=== PATIENT | male | born 1935 | race Caucasian/White ===

== ENCOUNTER 2017-09-28 16:48 | Inpatient (IN) | payer OTHER, MEDICARE ==
[2017-09-28] VITALS (7 sets, daily range): BP systolic 116–122; BP diastolic 57–67; PULSE 60–75; RESP 17; TEMP 97.6–98.2; O2SAT 95–98
[~2017-09-28] VITALS: Ht 188 cm; Wt 57.0 kg
[~2017-09-28 16:48] MED LIST: ATEN1TAB74 PO
[2017-09-28] MEDS ORDERED: DIVA250T3 PO (16:59)
[2017-09-28] MEDS ORDERED: ROPI2TAB PO (16:59)
[2017-09-28] MEDS ORDERED: FAMO40SU4 PO (16:59)
[2017-09-28] MEDS ORDERED: TEMA7.5C PO (16:59)
[2017-09-28] MEDS ORDERED: ENOX80P SQ (16:59)
[2017-09-28] MEDS ORDERED: AMLO5TAB2 PO (16:59)
[2017-09-28] MEDS ORDERED: SIMV40TA PO (16:59)
[2017-09-28] MEDS ORDERED: VITA10002 PO (16:59)
[2017-09-28] MEDS ORDERED: ASPI-516 CHEW (16:59)
[2017-09-28] MEDS ORDERED: TEMAZEPAM 7.5 MG CAP PO PRN (19:45)
[2017-09-28] MEDS: DIVALPROEX SODIUM E.R. 250 MG TAB PO SCH (19:45)
[2017-09-28] MEDS: amLODIPine BESYLATE 5 MG TAB PO SCH (19:45)
[2017-09-28] MEDS: ENOXAPARIN SODIUM 80 MG/0.8 ML SYRINGE SQ SCH (20:00)
[2017-09-28] MEDS: ASPIRIN 81 MG CHEW TAB PO SCH (20:48)
[2017-09-28] MEDS: PRAVASTATIN SOD 80 MG TAB PO SCH (20:48)
[2017-09-28] MEDS: CYANOCOBALAMIN 1,000 MCG TAB PO SCH (20:49)
[2017-09-28] MEDS: FAMOTIDINE 20 MG TAB PO SCH (20:50)
[2017-09-29] VITALS (25 sets, daily range): BP systolic 117–175; BP diastolic 59–83; PULSE 60–80; RESP 17–20; TEMP 97.3–98.1; O2SAT 96–100
[2017-09-29] MEDS: ASPIRIN 81 MG CHEW TAB PO SCH (08:36)
[2017-09-29] MEDS: FAMOTIDINE 20 MG TAB PO SCH ×2 (08:36→20:24)
[2017-09-29] MEDS: amLODIPine BESYLATE 5 MG TAB PO SCH (08:36)
[2017-09-29] MEDS: DIVALPROEX SODIUM E.R. 250 MG TAB PO SCH (08:36)
[2017-09-29] MEDS: CYANOCOBALAMIN 1,000 MCG TAB PO SCH (08:36)
[2017-09-29] MEDS ORDERED: DEXTROSE 50% IN WATER 50 ML VIAL(D50) IV PUSH PRN (09:45)
[2017-09-29] MEDS ORDERED: ceFAZolin 2 GM PREMIX 50 ML IV SCH (09:45)
[2017-09-29] MEDS ORDERED: INSULIN REGULAR (IV INFUSION) 100 UNITS in SODIUM CHLORIDE 0.9% INJ 99 ML IV PRN (09:45)
[2017-09-29] MEDS: SODIUM CHLORIDE 0.9% FLUSH 10 ML FLUSH IV FLUSH SCH ×2 (09:45→20:25)
[2017-09-29] MEDS ORDERED: METOPROLOL TARTRATE 25 MG TAB PO SCH (09:45)
[2017-09-29] MEDS ORDERED: CHLORHEXIDINE GLUCONATE 4% SOLN 120 ML BTL TOPICAL SCH (09:45)
[2017-09-29] MEDS ORDERED: SODIUM CHLORIDE 0.9% FLUSH 10 ML FLUSH IV FLUSH PRN (09:45)
[2017-09-29] MEDS ORDERED: CEFAZOLIN INJ 500 MG in SODIUM CHLORIDE 0.9% IRR BTL 500 ML IRRIGATION SCH (09:45)
--- NOTE | 2017-09-29 10:39 | MH ---
cc: DERIK MCCARTHY MD, SOHIT K. MD DATE OF ADMISSION: 09/28/2017 REASON FOR ADMISSION Transfer from [facility] for coronary artery disease. 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 Padron is a very pleasant 82-year-old gentleman with known history of coronary artery disease status post PCI with angioplasty in 1991 with no stenting at that time, as well as known history abdominal aortic aneurysm status post stent grafting who now presented to the emergency room with complaints of substernal chest pain, shortness of breath following some yard work. The patient was evaluated at [facility] and underwent further workup including EKG, cardiac enzymes which were indicative of a non ST elevated myocardial infarction. He subsequently underwent coronary angiogram yesterday by Dr. Wayne Mccarthy which revealed a nondominant right coronary artery with distal 80% left main stenosis per report and preserved ventricular function. He was subsequently transferred to [facility] for further management. Upon arrival here he is pain free, hemodynamically stable with no evidence of ongoing ischemia. PAST MEDICAL HISTORY: Significant for: 1. Coronary disease status post PTCA without angioplasty 1991. 2. Abdominal aortic aneurysm. 3. Hypertension. 4. Restless leg syndrome. 5. Gastroesophageal reflux disease. PAST SURGICAL HISTORY: Remarkable for: 1. Hernia repair. 2. Cholecystectomy. 3. Cardiac catheterization with PTCA described above. 4. Abdominal aortic aneurysm repair with stent graft. 5. Hemiarthroplasty of the humeral head. 6. Colonoscopy. ALLERGIES: NO KNOWN DRUG ALLERGIES. There is a remote history of lactose intolerance, however, the patient does not follow a lactose diet and eats a regular diet. SOCIAL HISTORY: Social history is remarkable for smoking in the remote past which he has not done so for awhile now and denies any excessive alcohol use or illicit drug use. FAMILY HISTORY Noncontributory. REVIEW OF SYSTEMS: As above. All other parameters are negative. PHYSICAL EXAMINATION: On examination today he weighs 56 kg, blood pressure is 153/71 with a heart rate of 66 which is regular, respiratory rate is 18 and he is afebrile. HEENT: Normocephalic, atraumatic. Pupils are round and reactive. Extraocular muscles intact, no cervical lymphadenopathy, carotid bruits or JVD. Cardiovascular: Regular rate and rhythm. Normal S1-S2 without gallops, rubs or murmurs. Lungs: Clear to auscultation bilaterally with good exchange. Abdomen: Soft, nontender, nondistended with normoactive bowel sounds. No hepatosplenomegaly. Extremities: Bilateral lower extremity pulses are intact without cyanosis, clubbing or edema. No venous varicosities. Neurological: Intact with no focal deficits. IMPRESSION 1. Jvm-BU-eyrfayism myocardial infarction. 2. Coronary disease status post previous PTCA. 3. Restless leg syndrome. 4. Hypertension. 5. Abdominal aortic aneurysm. Laboratory as well as the coronary angiography results were discussed in detail with the patient and his today. Therapeutic options available including coronary artery bypass grafting was recommended. I agree with Dr. Mccarthy that he will benefit from bypass to LAD and the first diagonal branch. The circumflex and the right coronary artery are very nondominant and very rudimentary. The risks, complications, and benefits of the surgical procedure were discussed in detail and all questions answered. They appeared to comprehend the information and are in agreement with the proposed plan. Prior to proceeding with surgical intravascular therapy he will need carotid duplex imaging, vein mapping and PFTs. We will get workup in progress and discuss with him the definitive risks and benefits of the surgical procedure following review of the above testing. In the meantime we will monitor his anginal symptoms. Thank you for allowing us to participate in the care of your patient. Mukesh VALENCIA /10:16 AM /10:28 AM
[2017-09-29] MEDS: MUPIROCIN 2% OINT 1 APPLIC/GM SYR EACH NARE SCH ×2 (11:09→20:24)
[2017-09-29 11:39] LABS: BASOPHIL % 0.6 % (0.0-2.0); EOSINOPHIL # 0.5 TH/MM3 (0-0.4); EOSINOPHIL % 7.8 % (0.0-4.0); HEMATOCRIT 33.1 % (39.0-51.0); HEMO FLAGS DIFF FINAL; LYMPH % 18.4 % (9.0-44.0); LYMPHOCYTE # 1.3 TH/MM3 (1.0-4.8); MEAN CELL VOLUME 90.7 FL (80.0-100.0); MEAN CORPUSCULAR HEMOGLOBIN 31.7 PG (27.0-34.0); MEAN CORPUSCULAR HGB CONC 34.9 % (32.0-36.0); MONO % 13.9 % (0.0-8.0); NEUT % 59.3 % (16.0-70.0); PLATELET COUNT 187 TH/MM3 (150-450); RED BLOOD COUNT 3.65 MIL/MM3 (4.50-5.90); RED CELL DISTRIBUTION WIDTH 14.3 % (11.6-17.2); WHITE BLOOD COUNT 6.8 TH/MM3 (4.0-11.0)
[2017-09-29 11:45] LABS: APTT (PATIENT) 26.8 SEC (24.3-30.1)
[2017-09-29 11:56] LABS: ALT (GPT) 21 U/L (12-78); ANION GAP 7 MEQ/L (5-15); AST (GOT) 24 U/L (15-37); BICARBONATE 28.5 MEQ/L (21.0-32.0); BLOOD UREA NITROGEN 17 MG/DL (7-18); CHLORIDE 102 MEQ/L (98-107); GLOMERULAR FILTRATION RATE 69 ML/MIN (>89); POTASSIUM 3.4 MEQ/L (3.5-5.1); SODIUM (NA) 137 MEQ/L (136-145)
[2017-09-29 11:59] LABS: ALKALINE PHOSPHATASE 53 U/L (45-117); TOTAL BILIRUBIN ADULT 0.7 MG/DL (0.2-1.0)
[2017-09-29 12:05] LABS: HEMOGLOBIN A1a 1.4 %; HEMOGLOBIN A1b 1.7 %; HEMOGLOBIN Ao 84.8 %; HEMOGLOBIN LA1C 2.1 %; HEMOGLOBIN P3 3.6 %
--- NOTE | 2017-09-29 12:38 | RADRPT ---
EXAM DATE/TIME: 09/29/2017 11:11 [facility] COMPARISON: No previous studies available for comparison. INDICATIONS : Preop cardiac surgery. MEDICAL HISTORY : Myocardial infarction. Hypertension. Glasses. Hearing aid. Migraine. Chest pain. Gall bladder disea se. Back pain. SURGICAL HISTORY : Angioplasty. Cholecystectomy. Left hip replacement. ENCOUNTER: Initial ACUITY: 1 day PAIN SCORE: 0/10 LOCATION: Bilateral neck PEAK SYSTOLIC VELOCITIES (cm/sec): ICA/CCA RATIO: Right: 1.1 Left: 1.5 ICA: Right: 70.8 Left: 93.0 CCA: Right: 62.8 Left: 62.0 ECA: Right: 48.2 Left: 84.0 VERTEBRAL: Right: 41.7 antegrade Left: 50.4 antegrade Elevated flow velocities and ICA/CCA ratios have been found to correlate with increased degrees of vessel stenosis, calculated as percentage of diameter relative to a normal segment of distal ICA/CCA FINDINGS: RIGHT CAROTID: Diffuse mild plaque formation in the distal common carotid artery and carotid bulb. No significant s tenosis is visualized. The waveforms are within normal limits. LEFT CAROTID: Mild plaque formation in the carotid bulb. No significant stenosis is visualized. The waveforms are within normal limits. VERTEBRAL ARTERIES: Antegrade flow is seen in both vertebral arteries. CONCLUSION: Bilateral carotid disease with hemodynamic profound characteristic of less than 50% stenosis. Waldo Metzger MD on September 29, 2017 at 12:36 Board Certified Radiologist. This report was verified electronically.
--- NOTE | 2017-09-29 12:40 | RADRPT ---
EXAM DATE/TIME: 09/29/2017 11:29 [facility] COMPARISON: No previous studies available for comparison. INDICATIONS : PreOp cardiac surgery. MEDICAL HISTORY : Myocardial infarction. Hypertension. Glasses. Hearing aid. Migraine. Chest pain. Gall bladder diseas e. Back pain. SURGICAL HISTORY : Angioplasty.Cholecystectomy. ENCOUNTER: Initial ACUITY: 1 day PAIN SCORE: 0/10 LOCATION: Bilateral legs. TECHNIQUE: Venous ultrasound of the left and right leg was performed from the inguinal ligament to the proximal calf. Real-time, color Doppler and spectral tracing, compression and augmentation techniques were us ed. FINDINGS: RIGHT LEG: There is normal compressibility of the deep venous system from the inguinal region to the proximal ca lf. No echogenic clot is seen in the lumen of the common femoral, femoral, popliteal, and posterior tibial veins. There is a normal response of the venous system to proximal and distal augmentation an d respiration. LEFT LEG: There is normal compressibility of the deep venous system from the inguinal region to the proximal ca lf. No echogenic clot is seen in the lumen of the common femoral, femoral, popliteal, and posterior tibial veins. There is a normal response of the venous system to proximal and distal augmentation an d respiration. CONCLUSION: Negative for deep venous thrombosis bilateral lower extremity. Waldo Metzger MD on September 29, 2017 at 12:37 Board Certified Radiologist. This report was verified electronically.
--- NOTE | 2017-09-29 12:41 | RADRPT ---
EXAM DATE/TIME: 09/29/2017 11:47 [facility] COMPARISON: No previous studies available for comparison. INDICATIONS : PreOp cardiac surgery. MEDICAL HISTORY : Hypertension. Myocardial infarction. Glasses. Hearing aid. Migraine. Chest pain. Gall bladder diseas e. Back pain. SURGICAL HISTORY : Angioplasty. Cholecystectomy. Left hip replacement. ENCOUNTER: Initial ACUITY: 1 day PAIN SCORE: 0/10 LOCATION: Bilateral legs. GREATER SAPHENOUS VEIN THIGH: PROXIMAL: Right 5 mm Left 6 mm MID: Right Non-visualized Left Thrombosed DISTAL: Right Non-visualized Left Thrombosed CALF: PROXIMAL: Right Non-visualized Left Thrombosed MID: Right Thrombosed Left Thrombosed DISTAL: Right Thrombosed Left Non-visualized FINDINGS: No flow seen in the superficial venous system from the mid thigh distal on both sides.. CONCLUSION: Nonpatent superficial venous system bilaterally. Waldo Metzger MD on September 29, 2017 at 12:38 Board Certified Radiologist. This report was verified electronically.
[2017-09-29 13:00] LABS: BLOOD, URINE NEG (NEG); COMMENT (UR) CULT NOT INDICATED; CULTURE IF INDICATED CULT NOT INDICATED; GLUCOSE,URINE NEG (NEG); KETONE, URINE NEG (NEG); MUCUS URINE FEW /lpf (OCC); NITRITE,URINE NEG (NEG); PH, URINE 5.5 (5.0-8.5); URINE COLOR LIGHT-YELLOW (YELLW/STRAW)
[2017-09-29] MEDS ORDERED: POTASSIUM CHLORIDE 20 MEQ CONTROLLED RELEASE TAB PO ONE (14:30)
--- NOTE | 2017-09-29 15:25 | RADRPT ---
EXAM DATE/TIME: 09/29/2017 14:15 [facility] COMPARISON: CHEST PA & LAT, November 29, 2010, 12:54. INDICATIONS : Evaluate for pneumonia, pneumothorax, or communicable diseases. MEDICAL HISTORY : Myocardial infarction. Hypertension. SURGICAL HISTORY : Angioplasty. Cholecystectomy. Left hip replacement. Aortic stent. ENCOUNTER: Initial ACUITY: 1 day PAIN SCORE: 0/10 LOCATION: Bilateral chest FINDINGS: There is a long segment stent graft in the descending thoracic aorta and also separately in the upper abdominal aorta, short segment. There is no new airspace consolidation or effusion. No pneumothorax. Mild hyperinflation. CONCLUSION: 1. No active disease. Previous endovascular repair of thoracic and abdominal aorta. Godfrey Ulloa MD on September 29, 2017 at 15:22 Board Certified Radiologist. This report was verified electronically.
[2017-09-29] MEDS: PRAVASTATIN SOD 80 MG TAB PO SCH (20:24)
[2017-09-29] MEDS: ENOXAPARIN SODIUM 80 MG/0.8 ML SYRINGE SQ SCH (20:24)
[2017-09-30] VITALS (27 sets, daily range): BP systolic 113–150; BP diastolic 60–77; PULSE 59–112; RESP 17–18; TEMP 97.8–98.4; O2SAT 96–99
[2017-09-30] MEDS: METOPROLOL TARTRATE 25 MG TAB PO SCH ×3 (06:40→20:53)
[2017-09-30] MEDS: MUPIROCIN 2% OINT 1 APPLIC/GM SYR EACH NARE SCH ×2 (08:19→20:53)
[2017-09-30] MEDS: DIVALPROEX SODIUM E.R. 250 MG TAB PO SCH (08:20)
[2017-09-30] MEDS: FAMOTIDINE 20 MG TAB PO SCH ×2 (08:20→20:53)
[2017-09-30] MEDS: CYANOCOBALAMIN 1,000 MCG TAB PO SCH (08:21)
[2017-09-30] MEDS: amLODIPine BESYLATE 5 MG TAB PO SCH (08:21)
[2017-09-30] MEDS: ASPIRIN 81 MG CHEW TAB PO SCH (08:21)
[2017-09-30] MEDS: SODIUM CHLORIDE 0.9% FLUSH 10 ML FLUSH IV FLUSH SCH ×2 (08:22→20:54)
[2017-09-30 12:11] LABS: BICARBONATE 28.4 MEQ/L (21.0-32.0); POTASSIUM 3.7 MEQ/L (3.5-5.1)
--- NOTE | 2017-09-30 16:05 | PD.CAR.PN ---
CVT Progress Note Subjective/Hospital Course: 82-year-old gentleman with known history of coronary artery disease status post PCI with angioplasty in 1991 with no stenting at that time, as well as known history abdominal aortic aneurysm status post stent grafting who now presented to the emergency room with complaints of substernal chest pain, shortness of breath following some yard work. The patient was evaluated at [facility] and underwent further workup including EKG, cardiac enzymes which were indicative of a non ST elevated myocardial infarction. He subsequently underwent coronary angiogram yesterday by Dr. Wayne Mccarthy which revealed a nondominant right coronary artery with distal 80% left main stenosis per report and preserved ventricular function. He was subsequently transferred to [facility] for further management. Upon arrival here he is pain free, hemodynamically stable with no evidence of ongoing ischemia. PAST MEDICAL HISTORY: Coronary disease status post PTCA without angioplasty 1991, . Abdominal aortic aneurysm, Hypertension, Restless leg syndrome, Gastroesophageal reflux disease. Abdominal aortic aneurysm repair with stent graft. 09/30 pt remains pain free, scheduled for surgery in am Objective: Vital Signs Date Time Temp Pulse Resp B/P (MAP) Pulse Ox O2 Delivery O2 Flow Rate FiO2 09/30/17 15:08 98.2 64 18 124/63 (83) 99 09/30/17 13:00 66 09/30/17 12:00 64 09/30/17 11:40 97.8 64 18 117/63 (81) 99 09/30/17 11:04 70 09/30/17 10:00 60 09/30/17 09:00 70 09/30/17 08:00 66 09/30/17 07:30 97.8 87 18 130/74 (92) 99 09/30/17 07:03 98 21 09/30/17 07:00 70 09/30/17 06:29 112 09/30/17 05:02 67 09/30/17 04:04 64 09/30/17 03:11 98.4 76 17 150/77 (101) 99 09/30/17 03:00 67 09/30/17 02:02 61 09/30/17 01:00 82 09/30/17 00:08 73 09/29/17 23:00 64 09/29/17 23:00 98.1 66 17 141/71 (94) 96 09/29/17 22:05 66 09/29/17 21:00 78 09/29/17 20:00 73 09/29/17 19:00 64 09/29/17 19:00 97.7 66 17 175/79 (111) 99 09/29/17 16:05 76 Labs: Laboratory Tests Test 09/30/17 11:20 Blood Urea Nitrogen 13 MG/DL (7-18) Creatinine 0.95 MG/DL (0.60-1.30) Random Glucose 99 MG/DL (74-106) Calcium Level 8.7 MG/DL (8.5-10.1) Sodium Level 139 MEQ/L (136-145) Potassium Level 3.7 MEQ/L (3.5-5.1) Chloride Level 104 MEQ/L (98-107) Carbon Dioxide Level 28.4 MEQ/L (21.0-32.0) Anion Gap 7 MEQ/L (5-15) Estimat Glomerular Filtration Rate 76 ML/MIN (>89) Result Diagram: 09/29/17 1108 09/30/17 1120 (1) Coronary artery disease (2) Abdominal aortic aneurysm (3) Hypertension (4) Restless leg syndrome Alise Donnelly Sep 30, 2017 16:05
[2017-09-30] MEDS: PRAVASTATIN SOD 80 MG TAB PO SCH (20:53)
[2017-10-01] VITALS (18 sets, daily range): BP systolic 94–125; BP diastolic 50–63; PULSE 56–79; RESP 14–18; TEMP 97.1–99; O2SAT 95–100
[2017-10-01] MEDS ORDERED: HEPARIN SODIUM - SQ 10,000 UNITS/ML VIAL ONE (06:12)
[2017-10-01] MEDS ORDERED: VANCOMYCIN HCL 1000 MG VIAL ONE (06:13)
[2017-10-01] MEDS ORDERED: ceFAZolin 2 GM PREMIX 50 ML ONE (06:13)
[2017-10-01] MEDS ORDERED: ACETAMINOPHEN 1000 MG/100 ML 100 ML IV ONE (06:45)
[2017-10-01] MEDS ORDERED: DEXMEDETOMIDINE HCL 200 MCG/2 ML VIAL ONE (06:45)
[2017-10-01] MEDS ORDERED: SUGAMMADEX SODIUM 200 MG/2 ML VIAL IV PUSH ONE ×2 (06:48)
[2017-10-01] MEDS: FAMOTIDINE 20 MG TAB PO SCH ×2 (09:00→21:55)
[2017-10-01] MEDS: DIVALPROEX SODIUM E.R. 250 MG TAB PO SCH (09:00)
[2017-10-01] MEDS: MUPIROCIN 2% OINT 1 APPLIC/GM SYR EACH NARE SCH ×2 (09:00→21:55)
[2017-10-01] MEDS: CYANOCOBALAMIN 1,000 MCG TAB PO SCH (09:00)
[2017-10-01] MEDS: amLODIPine BESYLATE 5 MG TAB PO SCH (09:00)
[2017-10-01] MEDS: ASPIRIN 81 MG CHEW TAB PO SCH (09:00)
[2017-10-01] MEDS: SODIUM CHLORIDE 0.9% FLUSH 10 ML FLUSH IV FLUSH SCH ×2 (09:00→21:58)
[2017-10-01] MEDS: METOPROLOL TARTRATE 25 MG TAB PO SCH ×2 (09:00→21:00)
[2017-10-01] MEDS: PAPAVERINE INJ 60 MG, NITROGLYCERIN INJ 100 MCG, DILTIAZEM INJ 100 MG in SODIUM CHLORID... IRRIGATION SCH ×2 (09:14→09:51)
[2017-10-01] MEDS ORDERED: POTASSIUM CHLORIDE 20 MEQ/10 ML VIAL ONE (10:52)
[2017-10-01] MEDS ORDERED: LACTATED RINGER'S 1000 ML INJ 500 ML IV PRN (11:28)
[2017-10-01] MEDS ORDERED: METOPROLOL TARTRATE 5 MG/5 ML VIAL IV PUSH PRN (11:30)
[2017-10-01] MEDS ORDERED: hydrALAZINE HCL 20 MG/ML VIAL IV PUSH PRN (11:30)
[2017-10-01] MEDS ORDERED: MORPHINE SULFATE 4 MG/ML INJ IV PUSH PRN (11:30)
[2017-10-01] MEDS ORDERED: SODIUM BICARBONATE 8.4% SOLN 50 MEQ/50 ML VIAL IV PUSH PRN ×2 (11:30)
[2017-10-01] MEDS ORDERED: ACETAMINOPHEN 650 MG SUPP RECTAL PRN (11:30)
[2017-10-01] MEDS ORDERED: Post-op Orders (for Pharmacy) MISC OTHER ONE (11:30)
[2017-10-01] MEDS ORDERED: SODIUM CHLORIDE 0.9% FLUSH 10 ML FLUSH IV FLUSH PRN (11:30)
[2017-10-01] MEDS ORDERED: CALCIUM CHLORIDE INJ 1 GM in SODIUM CHLORIDE 0.9% INJ 100 ML IV PRN (11:30)
[2017-10-01] MEDS ORDERED: POTASSIUM CHLORIDE 20 MEQ CONTROLLED RELEASE TAB PO PRN ×2 (11:30)
[2017-10-01] MEDS ORDERED: MAGNESIUM SULFATE INJ 2 GM in SODIUM CHLORIDE 0.9% INJ 100 ML IV PRN ×4 (11:30)
[2017-10-01] MEDS ORDERED: RESP: RACEPINEPHRINE 2.25% 0.5 ML NEB NEB PRN (11:30)
[2017-10-01] MEDS ORDERED: POTASSIUM CHLOR 20 MEQ PREMIX 100 ML IV PRN ×4 (11:30→15:30)
[2017-10-01] MEDS ORDERED: DEXTROSE 50% IN WATER 50 ML VIAL(D50) IV PUSH PRN (11:30)
[2017-10-01] MEDS ORDERED: MEPERIDINE HCL 25 MG/ML VIAL IV PUSH PRN (11:30)
[2017-10-01] MEDS ORDERED: CALCIUM CHLORIDE 10% 1 GRAM/10 ML VIAL IV PUSH PRN (11:30)
[2017-10-01] MEDS ORDERED: RESP: ALBUTEROL 2.5 MG/IPRATROPIUM 0.5 MG NEB (PRN) NEB (11:30)
[2017-10-01] MEDS ORDERED: DEXMEDETOMIDINE INJ 200 MCG in SODIUM CHLORIDE 0.9% INJ 50 ML IV PRN ×2 (11:30→15:00)
[2017-10-01] MEDS ORDERED: ALBUMIN 5% INJ 250 ML IV PRN (11:30)
[2017-10-01] MEDS ORDERED: ONDANSETRON HCL 4 MG/2 ML VIAL IV PUSH PRN (11:30)
--- NOTE | 2017-10-01 11:37 | PD.OP ---
cc: Mukesh De MD; Stephan Mccarthy MD Operative Report Date of Surgery: Oct 01, 2017 Preoperative Diagnosis: Postoperative Diagnosis: Procedure: 1. Urgent Off-pump Coronary Artery Bypass Grafting x 2 with Left Internal Mammary Artery (VASQUEZ) to the Left Anterior Descending (LAD), reverse saphenous vein graft to the Ramus marginalis (RM) 2. Right Leg Endoscopic Vein [place] 3. Intraoperative Vein Mapping Surgeon: Mukesh De Insurance Healthcare Representative(s): Maximo Wallace Operation and Findings: PREPROCEDURE DIAGNOSES 1. Two-Vessel Coronary Artery Disease. 2 Left Main Disease 3. Acute Myocardial Infarction (NSTEMI) 4. Abdominal Aortic Aneurysm - s/p TEVAR 5. Severe COPD POSTPROCEDURE DIAGNOSES Same SURGICAL PROCEDURE 1. Urgent Off-pump Coronary Artery Bypass Grafting x 2 with Left Internal Mammary Artery (VASQUEZ) to the Left Anterior Descending (LAD), reverse saphenous vein graft to the Ramus marginalis (RM) 2. Right Leg Endoscopic Vein [place] 3. Intraoperative Vein Mapping SURGEON Mukesh De MD STATION REPAIRER MARGARITA Capone ANESTHESIA General endotracheal POTASH FLAKER STACY Monroe MD PREPARATION ChloraPrep. COUNTS Needle, sponge, and instrument counts were correct. DRAINS Two 32-Swedish mediastinal tubes. COMPLICATIONS None. INDICATIONS FOR PROCEDURE The patient is a 82-year-old presenting with chest pain, NSTEMI and left main coronary artery disease. He is being brought to the operating room for surgical revascularization therapy. PROCEDURE Patient was brought to the operating room and placed supine on the OR table. Following the induction of adequate general endotracheal anesthesia and placement of appropriate monitoring devices, intraoperative vein mapping was performed which revealed suitable-caliber conduit in the right thigh for a short segment with non-usable conduit elsewhere bilaterally. The patient was then prepped and draped in standard sterile fashion. Next, 2500 units of intravenous heparin was given. The right greater saphenous vein was harvested endoscopically from the thigh. This appeared to be a useable-caliber conduit. Simultaneously, a median sternotomy was performed and the left internal mammary artery dissected free off the posterior sternal table. The patient was systemically heparinized and anticoagulation monitored by serial ACT measurements. The internal mammary artery had good pulsatile flow in it and was a decent-caliber conduit. The pericardium was then divided in the midline, the cradle created and targets analyzed. At this point, all anastomoses were performed in a beating-heart fashion using the Maquet stabilizing system. The left internal mammary artery was anastomosed to the mid LAD (2 mm) in an end-to- side fashion using 7-0 Prolene. The next segment was anastomosed to the ramus ( 2 mm) in an end-to-side fashion using a running 7-0 Prolene. The proximal anastomosis was then constructed to the ascending aorta in a running manner using 6-0 Prolene. All anastomotic sites were inspected and appeared to be hemostatic and patent. Protamine solution was given. Strict hemostasis was assured. The closure was undertaken. 2 chest tubes were placed. The pericardium was reapproximated in the midline. The sternum was approximated using sternal wires. The muscular and fascial layer were then closed in 3 layers. The endoscopic vein harvest site was closed in 2 layers. The patient tolerated the procedure well and was transferred to CVICU in stable condition. Mukesh De MD Oct 01, 2017 11:37
[2017-10-01] MEDS ORDERED: ceFAZolin INJ 1,000 MG VIAL ONE (11:52)
[2017-10-01] MEDS ORDERED: LACTATED RINGER'S 1000 ML INJ 1,000 ML IV ONE (12:00)
[2017-10-01] MEDS ORDERED: PHENYLEPH/NS 1000 MCG/10 ML SYR IV ONE (12:00)
[2017-10-01] MEDS ORDERED: HEPARIN SODIUM - SQ 10,000 UNITS/ML VIAL OTHER ONE (12:00)
[2017-10-01] MEDS ORDERED: VECURONIUM BROMIDE 10 MG VIAL IV ONE (12:00)
[2017-10-01] MEDS ORDERED: PHENYLEPHRINE HCL 10 MG/ML VIAL IV ONE (12:00)
[2017-10-01] MEDS ORDERED: ePHEDrine/NS 25 MG/5 ML SYR IV ONE (12:00)
[2017-10-01] MEDS ORDERED: LIDOCAINE HCL 2% 100 MG/5 ML SYRINGE IV PUSH ONE (12:00)
[2017-10-01] MEDS ORDERED: MIDAZOLAM HCL 5 MG/ML VIAL (1 ML) IV ONE (12:00)
[2017-10-01] MEDS ORDERED: ARTIFICIAL TEARS OPTH OINT 3.5 APPLIC/3.5 GM TUBO EACH EYE ONE (12:00)
[2017-10-01] MEDS ORDERED: PROTAMINE SULFATE 250 MG/25 ML VIAL IV ONE (12:00)
[2017-10-01] MEDS ORDERED: SODIUM CHLOR 0.9% 250 ML INJ 250 ML IV ONE (12:00)
[2017-10-01] MEDS ORDERED: GLYCOPYRROLATE 0.2 MG/ML VIAL IV ONE (12:00)
[2017-10-01] MEDS ORDERED: MAGNESIUM SULFATE 1 GM/2 ML VIAL IV ONE (12:00)
[2017-10-01] MEDS ORDERED: NS 100 ML (PAB BAG) 100 ML IV ONE (12:00)
[2017-10-01] MEDS ORDERED: NORMOSOL R INJ 1,000 ML IV ONE (12:00)
[2017-10-01] MEDS ORDERED: fentaNYL CITRATE 2500 MCG/50 ML VIAL IV ONE (12:00)
[2017-10-01] MEDS ORDERED: SODIUM CHLORID 0.9% 500 ML INJ 500 ML IV ONE (12:00)
[2017-10-01] MEDS ORDERED: CALCIUM CHLORIDE 10% SOLN 1 GRAM/10 ML SYR IV ONE (12:00)
--- NOTE | 2017-10-01 12:49 | RADRPT ---
EXAM DATE/TIME: 10/01/2017 12:10 [facility] COMPARISON: CHEST PA & LAT, September 29, 2017, 14:15. INDICATIONS : Post CABG. MEDICAL HISTORY : Hypertension. Myocardial infarction. Glasses. Hearing aid. Migraine. Chest pain. Gall bladder disease . Back pain. SURGICAL HISTORY : Angioplasty. Cholecystectomy. Left hip replacement. Aortic aneurysm repair. ENCOUNTER: Subsequent ACUITY: 1 day PAIN SCORE: Non-responsive. LOCATION: chest FINDINGS: A single view of the chest demonstrates interval postsurgical changes with multiple median sternotomy wires. 2 distinct stent graft traverses the descending thoracic aorta and the mid abdominal aorta. H eart size is normal with some atelectatic changes in the left base. Cannot exclude a small left-sided effusion. Endotracheal tube appropriately positioned above the meri with a nasogastric tube positi oned in the right mainstem bronchus. Right IJ central venous catheter projects over the central venou s system. Mediastinal drain and left thoracostomy tube. No pneumothorax. CONCLUSION: 1. Malposition of the nasogastric tube with the tip in the right bronchial tree. 2. Series of stent graft traversing the distal descending thoracic aorta and the mid abdominal aorta. These are stable in position. 3. Interval postsurgical changes with multiple median sternotomy wires. Endotracheal tube, left sided thoracostomy tube, mediastinal drain and right IJ central venous catheter all appear to be appropria tely positioned. No pneumothorax. 4. Left basilar consolidation with possible small associated effusion. Prosper Guerrier MD on October 01, 2017 at 12:42 Board Certified Radiologist. This report was verified electronically.
[2017-10-01] MEDS ORDERED: CLEVIDIPINE INJ 50 ML IV PRN (13:00)
[2017-10-01] MEDS ORDERED: KETOROLAC TROMETHAMINE 30 MG/ML (IVP) VIAL IV PUSH PRN (13:00)
[2017-10-01] MEDS ORDERED: DOBUTamine PREMIX DRIP 250 ML IV SCH (13:00)
[2017-10-01] MEDS ORDERED: NITROGLYCERIN-D5W 50 MG/250 ML 250 ML IV PRN (13:00)
[2017-10-01] MEDS ORDERED: INSULIN REGULAR (IV INFUSION) 100 UNITS in SODIUM CHLORIDE 0.9% INJ 99 ML IV PRN (13:00)
[2017-10-01] MEDS: ACETAMINOPHEN 1000 MG/100 ML 100 ML IV SCH ×2 (13:01→19:32)
[2017-10-01] MEDS ORDERED: DOPamine INJ PREMIX 500 ML IV PRN (14:00)
[2017-10-01] MEDS ORDERED: PHENYLEPHRINE INJ 40 MG in DEXTROSE 5% IN WATE 500 ML INJ 496 ML IV PRN ×2 (14:00)
[2017-10-01] MEDS: ceFAZolin 2 GM PREMIX 50 ML IV SCH (16:06)
[2017-10-01] MEDS: RESP: ALBUTEROL 2.5 MG/IPRATROPIUM 0.5 MG NEB (SCH) NEB ×2 (17:19→22:32)
[2017-10-01] MEDS: AMIODARONE 200 MG TAB PO SCH (21:55)
[2017-10-01] MEDS: PRAVASTATIN SOD 80 MG TAB PO SCH (21:55)
[2017-10-02] VITALS (9 sets, daily range): BP systolic 96–138; BP diastolic 54–64; PULSE 71–84; RESP 16–20; TEMP 97.4–99.9; O2SAT 92–97
[2017-10-02] MEDS: ceFAZolin 2 GM PREMIX 50 ML IV SCH ×3 (00:23→15:46)
[2017-10-02] MEDS: ACETAMINOPHEN 1000 MG/100 ML 100 ML IV SCH ×2 (00:25→06:25)
[2017-10-02 04:51] LABS: HEMATOCRIT 26.4 % (39.0-51.0); MEAN CELL VOLUME 88.4 FL (80.0-100.0); MEAN CORPUSCULAR HEMOGLOBIN 30.3 PG (27.0-34.0); MEAN CORPUSCULAR HGB CONC 34.3 % (32.0-36.0); PLATELET COUNT 163 TH/MM3 (150-450); RED BLOOD COUNT 2.99 MIL/MM3 (4.50-5.90); RED CELL DISTRIBUTION WIDTH 14.3 % (11.6-17.2); REVIEW FLAG FINAL; WHITE BLOOD COUNT 10.2 TH/MM3 (4.0-11.0)
[2017-10-02] MEDS: RESP: ALBUTEROL 2.5 MG/IPRATROPIUM 0.5 MG NEB (SCH) NEB ×4 (04:59→22:10)
--- NOTE | 2017-10-02 05:00 | RADRPT ---
EXAM DATE/TIME: 10/02/2017 04:05 [facility] COMPARISON: CHEST SINGLE AP, October 01, 2017, 12:10. INDICATIONS : Shortness of breath. MEDICAL HISTORY : Hypertension. Myocardial infarction. Glasses. Hearing aid. Migraine.Chest pain. Gall bladder disease. Back pain. SURGICAL HISTORY : Angioplasty. Cholecystectomy. Left hip replacement. Aortic aneurysm ENCOUNTER: Subsequent ACUITY: 3 days PAIN SCORE: 0/10 LOCATION: Bilateral chest FINDINGS: The patient is status post sternotomy. There is a mediastinal drain. There is a left chest tube. Ther e is a right internal jugular central line place. There is increased density at the bases. The heart size is normal. There is an aortic stent graft in place descending thoracic aorta CONCLUSION: 1. Status post sternotomy. Tubes and lines appear well placed. 2. Increased density basis related to some degree of atelectasis or consolidation. Andrew Fletcher MD on October 02, 2017 at 4:58 Board Certified Radiologist. This report was verified electronically.
[2017-10-02 05:20] LABS: BICARBONATE 23.2 MEQ/L (21.0-32.0); MAGNESIUM 1.9 MG/DL (1.5-2.5); POTASSIUM 4.4 MEQ/L (3.5-5.1)
--- NOTE | 2017-10-02 05:21 | EKG ---
Date Performed: 09/30/2017 Time Performed: 14:45:54 PTAGE: 82 years EKG: Possible ectopic atrial rhythm Prolonged QT interval Left ventricular hypertrophy Lateral S T-T changes may be due to hypertrophy and/or ischemia Abnormal ECG No significant change from prior e lectrocardiogram. NO PREVIOUS TRACING DOCTOR: Steve Cisneros Interpretating Date/Time 10/02/2017 05:21:02
[2017-10-02] MEDS: PANTOPRAZOLE SOD 40 MG DELAYED RELEASE TAB PO SCH (06:00)
[2017-10-02] MEDS: MUPIROCIN 2% OINT 1 APPLIC/GM SYR EACH NARE SCH (07:36)
[2017-10-02] MEDS: amLODIPine BESYLATE 5 MG TAB PO SCH (09:00)
[2017-10-02] MEDS: SODIUM CHLORIDE 0.9% FLUSH 10 ML FLUSH IV FLUSH SCH ×2 (09:08→21:00)
--- NOTE | 2017-10-02 09:20 | EKG ---
Date Performed: 10/02/2017 Time Performed: 05:34:48 PTAGE: 82 years EKG: CONSIDER ACUTE ST ELEVATION GA Sinus rhythm LATERAL INFARCT - POSSIBLY ACUTE Anteroseptal ST elevation, CONSIDER ACUTE INFARCT Abnormal ECG Compared to prior electrocardiogram, Acute lateral ST elevation GA is present. PREVIOUS TRACING : 09/30/2017 14.45 DOCTOR: Steve Cisneros Interpretating Date/Time 10/02/2017 09:19:42
[2017-10-02] MEDS: ASPIRIN 81 MG CHEW TAB PO SCH (09:41)
[2017-10-02] MEDS: FAMOTIDINE 20 MG TAB PO SCH ×2 (09:42→22:34)
[2017-10-02] MEDS: DIVALPROEX SODIUM E.R. 250 MG TAB PO SCH ×2 (09:42→22:38)
[2017-10-02] MEDS: CYANOCOBALAMIN 1,000 MCG TAB PO SCH (09:43)
[2017-10-02] MEDS: CLOPIDOGREL 75 MG TAB PO SCH (09:43)
[2017-10-02] MEDS: AMIODARONE 200 MG TAB PO SCH ×2 (09:43→22:35)
[2017-10-02] MEDS ORDERED: POTASSIUM CHLORIDE 10 MEQ CONTROLLED RELEASE TAB PO ONE (09:45)
[2017-10-02] MEDS ORDERED: FUROSEMIDE 20 MG/2 ML VIAL IV PUSH ONE (09:45)
[2017-10-02] MEDS ORDERED: DEXTROSE 50% IN WATER 50 ML VIAL(D50) IV PUSH PRN (09:45)
[2017-10-02] MEDS ORDERED: GLUCAGON 1 MG/ML VIAL OTHER PRN (09:45)
[2017-10-02] MEDS: METOPROLOL TARTRATE 25 MG TAB PO SCH ×2 (09:46→22:35)
--- NOTE | 2017-10-02 10:13 | RSPPFT ---
DATE OF PROCEDURE: 09/30/17 COMMENTS: Spirometry with FVC of 3.5, FEV1 of 2.2, FEV1/FVC ratio at 61%. Post-bronchodilator study was not performed. IMPRESSION: 1. Moderate airways obstruction.
[2017-10-02] MEDS: INSULIN ASPART SUPPLEMENTAL SCALE SQ SCH ×4 (10:51→22:34)
--- NOTE | 2017-10-02 13:00 | PD.CAR.PN ---
CVT Progress Note Subjective/Hospital Course: 82-year-old gentleman with known history of coronary artery disease status post PCI with angioplasty in 1991 with no stenting at that time, as well as known history abdominal aortic aneurysm status post stent grafting who now presented to the emergency room with complaints of substernal chest pain, shortness of breath following some yard work. The patient was evaluated at [facility] and underwent further workup including EKG, cardiac enzymes which were indicative of a non ST elevated myocardial infarction. He subsequently underwent coronary angiogram yesterday by Dr. Wayne Mccarthy which revealed a nondominant right coronary artery with distal 80% left main stenosis per report and preserved ventricular function. He was subsequently transferred to [facility] for further management. Upon arrival here he is pain free, hemodynamically stable with no evidence of ongoing ischemia. PAST MEDICAL HISTORY: Coronary disease status post PTCA without angioplasty 1991, . Abdominal aortic aneurysm, Hypertension, Restless leg syndrome, Gastroesophageal reflux disease. Abdominal aortic aneurysm repair with stent graft. 09/30 pt remains pain free, scheduled for surgery in am 10/01 surgery : 1. Urgent Off-pump Coronary Artery Bypass Grafting x 2 with Left Internal Mammary Artery (VASQUEZ) to the Left Anterior Descending (LAD), reverse saphenous vein graft to the Ramus marginalis (RM) 2. Right Leg Endoscopic Vein [place] 3500cc crystalloid , 250cc cell saver, 500cc EBL 10/02 up in chair, on nasal cannula NSR, on BB statin ,amiodarone, plavix continue home meds transfer to stepdown Objective: GENERAL: SKIN: Warm and dry. prevena to chest , yuko wrap right leg HEAD: Normocephalic. EYES: No scleral icterus. No injection or drainage. NECK: Supple, trachea midline. No JVD or lymphadenopathy. CARDIOVASCULAR: Regular rate and rhythm without murmurs, gallops, or rubs. RESPIRATORY: Breath sounds equal bilaterally. No accessory muscle use. diminished in bases / chest tube to wall suction/ drained 370cc/ 12 hrs no air leak GASTROINTESTINAL: Abdomen soft, non-tender, nondistended. MUSCULOSKELETAL: No cyanosis, or edema. BACK: Nontender without obvious deformity. No CVA tenderness. Vital Signs Date Time Temp Pulse Resp B/P (MAP) Pulse Ox O2 Delivery O2 Flow Rate FiO2 10/02/17 12:00 Nasal Cannula 3.00 95 10/02/17 11:00 97.6 79 18 96/54 (68) 96 Arterial Line 10/02/17 11:00 79 10/02/17 08:10 95 Nasal Cannula 2.00 10/02/17 08:00 Nasal Cannula 3.00 96 10/02/17 07:00 97.4 84 18 97 138/64 (88) 10/02/17 07:00 79 10/02/17 04:00 Nasal Cannula 3.00 95 10/02/17 03:50 20 10/02/17 03:20 77 10/02/17 03:00 99.4 78 20 92 120/59 (79) 10/02/17 01:00 18 10/02/17 00:00 99.9 71 20 97 120/59 (79) 10/02/17 00:00 Nasal Cannula 3.00 95 10/01/17 23:25 79 10/01/17 22:33 98 Nasal Cannula 2.00 10/01/17 21:04 94 3.00 10/01/17 20:00 Nasal Cannula 2.00 95 10/01/17 19:10 66 10/01/17 19:00 99.0 65 18 100 120/50 (73) 10/01/17 17:57 16 10/01/17 16:04 98 Nasal Cannula 2.00 95 10/01/17 15:23 97.7 10/01/17 15:04 97.9 56 16 125/53 (77) 99 10/01/17 15:03 56 10/01/17 14:07 95 Nasal Cannula 6.00 10/01/17 14:05 98 Nasal Cannula 6 10/01/17 14:05 98 Nasal Cannula 6.00 10/01/17 13:46 40 10/01/17 13:07 97.1 Labs: Laboratory Tests Test 10/02/17 04:30 White Blood Count 10.2 TH/MM3 (4.0-11.0) Red Blood Count 2.99 MIL/MM3 (4.50-5.90) Hemoglobin 9.1 GM/DL (13.0-17.0) Hematocrit 26.4 % (39.0-51.0) Mean Corpuscular Volume 88.4 FL (80.0-100.0) Mean Corpuscular Hemoglobin 30.3 PG (27.0-34.0) Mean Corpuscular Hemoglobin Concent 34.3 % (32.0-36.0) Red Cell Distribution Width 14.3 % (11.6-17.2) Platelet Count 163 TH/MM3 (150-450) Mean Platelet Volume 7.5 FL (7.0-11.0) Blood Urea Nitrogen 15 MG/DL (7-18) Creatinine 0.99 MG/DL (0.60-1.30) Random Glucose 120 MG/DL (74-106) Calcium Level 8.1 MG/DL (8.5-10.1) Magnesium Level 1.9 MG/DL (1.5-2.5) Sodium Level 136 MEQ/L (136-145) Potassium Level 4.4 MEQ/L (3.5-5.1) Chloride Level 105 MEQ/L (98-107) Carbon Dioxide Level 23.2 MEQ/L (21.0-32.0) Anion Gap 8 MEQ/L (5-15) Estimat Glomerular Filtration Rate 73 ML/MIN (>89) Result Diagram: 10/02/1742910/02/17429 Telemetry: NSR (1) Coronary artery disease (2) S/P CABG x 2 Plan: ASA , statin , BB , amiodarone replace mag OOB ambulate. PT/OT pulm toileting (3) Abdominal aortic aneurysm Plan: hx of stent (4) Hypertension Plan: controlled (5) Restless leg syndrome Plan: requip (6) Seizure disorder Plan: on Alise Joyce Oct 02, 2017 13:00
--- NOTE | 2017-10-02 13:03 | HHI.FF ---
Face to Face Verification Diagnosis: (1) Coronary artery disease (2) Restless leg syndrome (3) Abdominal aortic aneurysm (4) Hypertension (5) Seizure disorder (6) S/P CABG x 2 Physical Therapy Order: Evaluate and Treat Home Health Nursing Order: Signs/symptoms of disease process Medication education-adverse effect Wound care and dressing changes Nursing assessment with vital signs Instructions: Heart and Vascular Surgery patients *Special attention to sternal dressing Mandatory frequency Assess and evaluation, 4 days in a row The next week 3X week 2 times a week for 4 weeks 1 time a week for 5 weeks Schedule Heart and Vascular patients for full 60 day certification period Initial visit Review Open Heart Surgery Discharge Instructions (Sternal precautions, Activity, Elastic hose, Incision care, Driving, Incentive spirometry, Smoking, [place], Work and other) Need Betadine to paint incision Medication reconciliation Importance of follow up care/ check on appointments Make calendar record temperature daily When to call [facility] nurse, review instructions, phone list Incentive Spirometry, demonstration Visit 1- Begin discharge instruction for patient family and/ or caregiver using teach back method- Signs and symptoms of infection Disease characteristics Medicines and side effects Foods and nutrition/ appetite Infection control/ hand washing/ hygiene Visit 2- Continue teaching Discharge instructions- include additional information on smoking cessation , sternal dressing (sternal vac) Visit 3- Continue teaching- Cough and deep breathing, incision monitoring. Choose my plate Visit 4- Continue teaching- Discuss limitations Discuss how they are feeling Discuss progress toward goals Remaining visits- continue teaching and monitoring PREVENA Single Use Negative Wound Therapy System Caregiver Instruction Sheet 1. A Prevena dressing system was applied to the chest incision during surgery , to promote wound healing. It works via a suction device (negative pressure wound therapy) to remove low to moderate levels of exudate (drainage) and infectious materials. We recommend that the device stay in place for up to seven days, from day of surgery. 2. Day of Surgery___10/01/17 Day of Removal ___10/08/17 3. The dressing should only be removed by a health career services coordinator. Please arrange removal of device to coincide with Home Health visit and or with Nursing staff at Rehab 4. If skin reddening or irritation of skin occurs, or excessive drainage, please notify the Cardiovascular Surgeons office at [phone]. 5. Light showering is permissible; however the pump should be disconnected and placed in safe location, where it will not get wet. The dressing should not be exposed to direct spray or submerged in water. No bath tub / shower only. Ensure the end of the tubing attached to the dressing is facing down so that water does not enter the top of the tube. 6. To remove Prevena dressing: press purple button to turn off device / remove the suction. Then disconnect the tubing from the pump. The fixation strips should be stretched away from the skin and the dressing lifted at one corner and peeled back until it has been fully removed. 7. After removal, it is ok to shower daily using liquid dial soap and clean wash cloth, rinse and pat dry, and leave incision open to air dry. For any concerns regarding Prevena dressing, and or wounds, please contact Carmen Constantino, patient navigator at [phone] or notify the Cardiovascular Surgeons office at [phone]. Incentive spirometry Q1 hr x 10, while awake, also use acapella device hourly whole awake Sternal Breast Bone Precautions: NO pushing or pulling, ( pt must use sternal pillow to support chest with all activities and with coughing ( takes up to 3 months breast bone to heal ) Daily incision care: ok to shower daily, no tub bath. Wash all incisions with liquid dial soap, clean wash cloth to each site, rinse and pat dry. Observe for any signs of infection, such as drainage which is dark yellow, patterson, green or foul smelling. Immediately report to the surgeon any drainage from the chest incision, or legs, and for any abnormal drainage from the chest tube sites. Notify surgeon if any temp >101.5 degrees F. When specialty dressing removed/ or if you do not have one, continue to shower daily as above, then rinse and pat incision dry and paint with betadine daily x 5 days. Allow steri strips to fall off if you have any. Avoid lotions, creams, salves, oils, etc. for the first month Please see attached forms for additional instructions regarding post Open Heart specialty wound vacuum dressings. MEMO or Prevena , Dressing to be removed by Nursing staff on __10/08/17 F/U appointment: as per DC instructions: PCP in 2 weeks, CV surgeon 2 weeks, Records Management Clerk 3-4 weeks For any questions regarding incisions/ dressing / meds / post op care or above Symptoms, Saturday 8am-5pm Heart & Vascular Surgery Office ( Dr. De & Dr. York), After Hours / Nights (5pm -8am) Weekends and Holidays Please call [facility] Cardiac Intermediate Care Unit (CIC) Charge Nurse I have seen patient Emeka Padron on 10/02/17. My clinical findings support the need for the requested home health care services because: Deconditioned w/ increased weakness I certify that my clinical findings support that this patient is homebound because: Post-op weakness Alise Donnelly Oct 02, 2017 13:03
[2017-10-02] MEDS: ACETAMINOPHEN 325 MG TAB PO PRN ×2 (14:39→22:35)
--- NOTE | 2017-10-02 16:06 | PD.CAR.PN ---
CVT Progress Note Subjective/Hospital Course: 82-year-old gentleman with known history of coronary artery disease status post PCI with angioplasty in 1991 with no stenting at that time, as well as known history abdominal aortic aneurysm status post stent grafting who now presented to the emergency room with complaints of substernal chest pain, shortness of breath following some yard work. The patient was evaluated at [facility] and underwent further workup including EKG, cardiac enzymes which were indicative of a non ST elevated myocardial infarction. He subsequently underwent coronary angiogram yesterday by Dr. Wayne Mccarthy which revealed a nondominant right coronary artery with distal 80% left main stenosis per report and preserved ventricular function. He was subsequently transferred to [facility] for further management. Upon arrival here he is pain free, hemodynamically stable with no evidence of ongoing ischemia. PAST MEDICAL HISTORY: Coronary disease status post PTCA without angioplasty 1991, . Abdominal aortic aneurysm, Hypertension, Restless leg syndrome, Gastroesophageal reflux disease. Abdominal aortic aneurysm repair with stent graft. sts data discussed with pt prior to surgery RISK SCORES About the STS Risk Calculator Procedure: CAB Only Risk of Mortality: 1.403% Morbidity or Mortality: 11.072% Long Length of Stay: 4.373% Short Length of Stay: 48.039% Permanent Stroke: 0.822% Prolonged Ventilation: 6.876% DSW Infection: 0.254% Renal Failure: 1.907% Reoperation: 5.186% 09/30 pt remains pain free, scheduled for surgery in am 10/01 surgery : 1. Urgent Off-pump Coronary Artery Bypass Grafting x 2 with Left Internal Mammary Artery (VASQUEZ) to the Left Anterior Descending (LAD), reverse saphenous vein graft to the Ramus marginalis (RM) 2. Right Leg Endoscopic Vein [place] 3500cc crystalloid , 250cc cell saver, 500cc EBL 10/02 up in chair, on nasal cannula NSR, on BB statin ,amiodarone, plavix continue home meds transfer to stepdown Objective: Vital Signs Date Time Temp Pulse Resp B/P (MAP) Pulse Ox O2 Delivery O2 Flow Rate FiO2 10/02/17 15:00 97.6 73 18 106/58 (74) 95 10/02/17 15:00 73 10/02/17 12:00 Nasal Cannula 3.00 95 10/02/17 11:00 97.6 79 18 96/54 (68) 96 Arterial Line 10/02/17 11:00 79 10/02/17 08:10 95 Nasal Cannula 2.00 10/02/17 08:00 Nasal Cannula 3.00 96 10/02/17 07:00 97.4 84 18 97 138/64 (88) 10/02/17 07:00 79 10/02/17 04:00 Nasal Cannula 3.00 95 10/02/17 03:50 20 10/02/17 03:20 77 10/02/17 03:00 99.4 78 20 92 120/59 (79) 10/02/17 01:00 18 10/02/17 00:00 99.9 71 20 97 120/59 (79) 10/02/17 00:00 Nasal Cannula 3.00 95 10/01/17 23:25 79 10/01/17 22:33 98 Nasal Cannula 2.00 10/01/17 21:04 94 3.00 10/01/17 20:00 Nasal Cannula 2.00 95 10/01/17 19:10 66 10/01/17 19:00 99.0 65 18 100 120/50 (73) 10/01/17 17:57 16 Labs: Laboratory Tests Test 10/02/17 04:30 White Blood Count 10.2 TH/MM3 (4.0-11.0) Red Blood Count 2.99 MIL/MM3 (4.50-5.90) Hemoglobin 9.1 GM/DL (13.0-17.0) Hematocrit 26.4 % (39.0-51.0) Mean Corpuscular Volume 88.4 FL (80.0-100.0) Mean Corpuscular Hemoglobin 30.3 PG (27.0-34.0) Mean Corpuscular Hemoglobin Concent 34.3 % (32.0-36.0) Red Cell Distribution Width 14.3 % (11.6-17.2) Platelet Count 163 TH/MM3 (150-450) Mean Platelet Volume 7.5 FL (7.0-11.0) Blood Urea Nitrogen 15 MG/DL (7-18) Creatinine 0.99 MG/DL (0.60-1.30) Random Glucose 120 MG/DL (74-106) Calcium Level 8.1 MG/DL (8.5-10.1) Magnesium Level 1.9 MG/DL (1.5-2.5) Sodium Level 136 MEQ/L (136-145) Potassium Level 4.4 MEQ/L (3.5-5.1) Chloride Level 105 MEQ/L (98-107) Carbon Dioxide Level 23.2 MEQ/L (21.0-32.0) Anion Gap 8 MEQ/L (5-15) Estimat Glomerular Filtration Rate 73 ML/MIN (>89) Result Diagram: 10/02/1742910/02/17429 (1) Coronary artery disease (2) S/P CABG x 2 Plan: ASA , statin , BB , amiodarone replace mag OOB ambulate. PT/OT pulm toileting (3) Abdominal aortic aneurysm Plan: hx of stent (4) Hypertension Plan: controlled (5) Restless leg syndrome Plan: requip (6) Seizure disorder Plan: on Alise Joyce Oct 02, 2017 16:06
[2017-10-02] MEDS: DOCUSATE SODIUM 100 MG CAP PO SCH (22:34)
[2017-10-02] MEDS: SENNOSIDES 8.6 MG TAB PO SCH (22:34)
[2017-10-02] MEDS: PRAVASTATIN SOD 80 MG TAB PO SCH (22:35)
[2017-10-03] VITALS (9 sets, daily range): BP systolic 95–137; BP diastolic 53–74; PULSE 74–91; RESP 16; TEMP 98–99; O2SAT 94–100
[2017-10-03] MEDS: ceFAZolin 2 GM PREMIX 50 ML IV SCH (00:16)
[2017-10-03] MEDS: INSULIN ASPART SUPPLEMENTAL SCALE SQ SCH ×5 (01:36→21:00)
[2017-10-03 05:56] LABS: AUTOMATED NEUTROPHIL # 10.2 TH/MM3 (1.8-7.7); BASOPHIL # 0.1 TH/MM3 (0-0.2); BASOPHIL % 0.4 % (0.0-2.0); EOSINOPHIL # 0.4 TH/MM3 (0-0.4); EOSINOPHIL % 3.1 % (0.0-4.0); HEMATOCRIT 23.3 % (39.0-51.0); HEMO FLAGS DIFF FINAL; LYMPH % 7.2 % (9.0-44.0); MEAN CORPUSCULAR HEMOGLOBIN 30.3 PG (27.0-34.0); MEAN CORPUSCULAR HGB CONC 34.5 % (32.0-36.0); MONO % 14.6 % (0.0-8.0); NEUT % 74.7 % (16.0-70.0); PLATELET COUNT 174 TH/MM3 (150-450); RED BLOOD COUNT 2.65 MIL/MM3 (4.50-5.90); RED CELL DISTRIBUTION WIDTH 14.4 % (11.6-17.2); WHITE BLOOD COUNT 13.7 TH/MM3 (4.0-11.0)
[2017-10-03] MEDS: PANTOPRAZOLE SOD 40 MG DELAYED RELEASE TAB PO SCH (06:00)
[2017-10-03 06:27] LABS: BICARBONATE 25.9 MEQ/L (21.0-32.0); MAGNESIUM 2.2 MG/DL (1.5-2.5); POTASSIUM 4.1 MEQ/L (3.5-5.1)
[2017-10-03] MEDS: CLOPIDOGREL 75 MG TAB PO SCH (08:52)
[2017-10-03] MEDS: MAGNESIUM HYDROXIDE SUSP 30 ML CUP PO SCH (08:53)
[2017-10-03] MEDS: CYANOCOBALAMIN 1,000 MCG TAB PO SCH (08:53)
[2017-10-03] MEDS: METOPROLOL TARTRATE 25 MG TAB PO SCH ×2 (08:54→21:32)
[2017-10-03] MEDS: FAMOTIDINE 20 MG TAB PO SCH ×2 (08:54→21:33)
[2017-10-03] MEDS: DIVALPROEX SODIUM E.R. 250 MG TAB PO SCH ×2 (08:54→23:33)
[2017-10-03] MEDS: ASPIRIN 81 MG CHEW TAB PO SCH (08:54)
[2017-10-03] MEDS: POLYETHYLENE GLYCOL 17 GM PKG PO SCH (08:55)
[2017-10-03] MEDS: MULTIVITAMINS/MINERALS THERAPEUTIC TAB PO SCH (08:55)
[2017-10-03] MEDS: AMIODARONE 200 MG TAB PO SCH ×2 (08:55→21:33)
[2017-10-03] MEDS: DOCUSATE SODIUM 100 MG CAP PO SCH ×2 (08:55→21:32)
[2017-10-03] MEDS: SODIUM CHLORIDE 0.9% FLUSH 10 ML FLUSH IV FLUSH SCH ×2 (08:56→21:33)
--- NOTE | 2017-10-03 09:02 | PD.CAR.PN ---
CVT Progress Note Subjective/Hospital Course: 82-year-old gentleman with known history of coronary artery disease status post PCI with angioplasty in 1991 with no stenting at that time, as well as known history abdominal aortic aneurysm status post stent grafting who now presented to the emergency room with complaints of substernal chest pain, shortness of breath following some yard work. The patient was evaluated at [facility] and underwent further workup including EKG, cardiac enzymes which were indicative of a non ST elevated myocardial infarction. He subsequently underwent coronary angiogram yesterday by Dr. Wayne Mccarthy which revealed a nondominant right coronary artery with distal 80% left main stenosis per report and preserved ventricular function. He was subsequently transferred to [facility] for further management. Upon arrival here he is pain free, hemodynamically stable with no evidence of ongoing ischemia. PAST MEDICAL HISTORY: Coronary disease status post PTCA without angioplasty 1991, . Abdominal aortic aneurysm, Hypertension, Restless leg syndrome, Gastroesophageal reflux disease. Abdominal aortic aneurysm repair with stent graft 09/30 pt remains pain free, scheduled for surgery in am 10/01 surgery : 1. Urgent Off-pump Coronary Artery Bypass Grafting x 2 with Left Internal Mammary Artery (VASQUEZ) to the Left Anterior Descending (LAD), reverse saphenous vein graft to the Ramus marginalis (RM) 2. Right Leg Endoscopic Vein [place] 3500cc crystalloid , 250cc cell saver, 500cc EBL 10/02 up in chair, on nasal cannula NSR, on BB statin ,amiodarone, plavix continue home meds transfer to stepdown 10/03 poor cough effort, needs aggressive pulm toileting chest tube drained 140cc/ 12 hrs, re-eval for removal later today very painful this am await bed in stepdown remains in NSR/ ECG noted, recheck today Objective: Vital Signs Date Time Temp Pulse Resp B/P (MAP) Pulse Ox O2 Delivery O2 Flow Rate FiO2 10/03/17 08:00 94 Nasal Cannula 4.00 10/03/17 07:00 98.0 79 16 106/53 (70) 94 10/03/17 07:00 79 10/03/17 04:00 94 Nasal Cannula 4.00 10/03/17 03:00 74 10/03/17 03:00 98.1 76 16 95/57 (70) 97 10/03/17 00:00 98.4 88 16 137/74 (95) 97 10/03/17 00:00 94 Nasal Cannula 4.00 10/02/17 23:40 18 10/02/17 23:00 78 10/02/17 22:10 Nasal Cannula 4.00 10/02/17 20:00 97.8 79 16 112/62 (79) 95 10/02/17 20:00 94 Nasal Cannula 4.00 10/02/17 20:00 78 10/02/17 16:00 Nasal Cannula 3.00 94 10/02/17 15:00 97.6 73 18 106/58 (74) 95 10/02/17 15:00 73 10/02/17 12:00 Nasal Cannula 3.00 95 10/02/17 11:00 97.6 79 18 96/54 (68) 96 Arterial Line 10/02/17 11:00 79 Labs: Laboratory Tests Test 10/03/17 04:15 White Blood Count 13.7 TH/MM3 (4.0-11.0) Red Blood Count 2.65 MIL/MM3 (4.50-5.90) Hemoglobin 8.0 GM/DL (13.0-17.0) Hematocrit 23.3 % (39.0-51.0) Mean Corpuscular Volume 88.0 FL (80.0-100.0) Mean Corpuscular Hemoglobin 30.3 PG (27.0-34.0) Mean Corpuscular Hemoglobin Concent 34.5 % (32.0-36.0) Red Cell Distribution Width 14.4 % (11.6-17.2) Platelet Count 174 TH/MM3 (150-450) Mean Platelet Volume 8.0 FL (7.0-11.0) Neutrophils (%) (Auto) 74.7 % (16.0-70.0) Lymphocytes (%) (Auto) 7.2 % (9.0-44.0) Monocytes (%) (Auto) 14.6 % (0.0-8.0) Eosinophils (%) (Auto) 3.1 % (0.0-4.0) Basophils (%) (Auto) 0.4 % (0.0-2.0) Neutrophils # (Auto) 10.2 TH/MM3 (1.8-7.7) Lymphocytes # (Auto) 1.0 TH/MM3 (1.0-4.8) Monocytes # (Auto) 2.0 TH/MM3 (0-0.9) Eosinophils # (Auto) 0.4 TH/MM3 (0-0.4) Basophils # (Auto) 0.1 TH/MM3 (0-0.2) CBC Comment DIFF FINAL Differential Comment Blood Urea Nitrogen 24 MG/DL (7-18) Creatinine 0.99 MG/DL (0.60-1.30) Random Glucose 89 MG/DL (74-106) Calcium Level 8.0 MG/DL (8.5-10.1) Magnesium Level 2.2 MG/DL (1.5-2.5) Sodium Level 134 MEQ/L (136-145) Potassium Level 4.1 MEQ/L (3.5-5.1) Chloride Level 98 MEQ/L (98-107) Carbon Dioxide Level 25.9 MEQ/L (21.0-32.0) Anion Gap 10 MEQ/L (5-15) Estimat Glomerular Filtration Rate 73 ML/MIN (>89) Result Diagram: 10/03/17 0415 10/03/17 0415 Telemetry: NSR ECG noted st elevation noted post op (1) Coronary artery disease (2) S/P CABG x 2 Plan: ASA , statin , BB , amiodarone replace mag OOB ambulate. PT/OT pulm toileting pain control (3) Abdominal aortic aneurysm Plan: hx of stent (4) Hypertension Plan: controlled (5) Restless leg syndrome Plan: requip (6) Seizure disorder Plan: on Alise Joyce Oct 03, 2017 09:02
[2017-10-03] MEDS: RESP: ALBUTEROL 2.5 MG/IPRATROPIUM 0.5 MG NEB (SCH) NEB ×3 (09:36→19:20)
[2017-10-03] MEDS: FERROUS SULFATE 325 MG (65 MG ELEMENTAL IRON) TAB PO SCH ×2 (12:00→19:25)
--- NOTE | 2017-10-03 16:11 | EKG ---
Date Performed: 10/03/2017 Time Performed: 09:26:48 PTAGE: 82 years EKG: CONSIDER ACUTE ST ELEVATION HI Possible ectopic atrial rhythm Lateral ST elevation, CONSIDER ACUTE INFARCT ST junctional depression is nonspecific Abnormal ECG Since PREVIOUS TRACING , no significant change noted PREVIOUS TRACIN10/02/2017 05.34 DOCTOR: Shazia Fletcher Interpretating Date/Time 10/03/2017 16:10:16
[2017-10-03] MEDS: ACETAMINOPHEN/HYDROcodone 325 MG/5 MG TAB PO PRN (16:27)
[2017-10-03] MEDS: SENNOSIDES 8.6 MG TAB PO SCH (21:32)
[2017-10-03] MEDS: PRAVASTATIN SOD 80 MG TAB PO SCH (21:32)
[2017-10-03] MEDS: INDOMETHACIN 25 MG CAP PO SCH (21:32)
[2017-10-04] VITALS (24 sets, daily range): BP systolic 99–120; BP diastolic 54–66; PULSE 61–79; RESP 16–20; TEMP 97.5–98.4; O2SAT 91–96
[2017-10-04 05:27] LABS: HEMATOCRIT 25.2 % (39.0-51.0); MEAN CELL VOLUME 87.1 FL (80.0-100.0); MEAN CORPUSCULAR HEMOGLOBIN 29.7 PG (27.0-34.0); MEAN CORPUSCULAR HGB CONC 34.1 % (32.0-36.0); PLATELET COUNT 231 TH/MM3 (150-450); RED BLOOD COUNT 2.89 MIL/MM3 (4.50-5.90); RED CELL DISTRIBUTION WIDTH 14.3 % (11.6-17.2); WHITE BLOOD COUNT 15.5 TH/MM3 (4.0-11.0)
[2017-10-04 05:32] LABS: HEMO FLAGS AUTO DIFF
[2017-10-04] MEDS: PANTOPRAZOLE SOD 40 MG DELAYED RELEASE TAB PO SCH (05:55)
[2017-10-04] MEDS: INDOMETHACIN 25 MG CAP PO SCH ×3 (05:55→20:53)
[2017-10-04] MEDS: RESP: ALBUTEROL 2.5 MG/IPRATROPIUM 0.5 MG NEB (SCH) NEB (07:34)
[2017-10-04] MEDS: INSULIN ASPART SUPPLEMENTAL SCALE SQ SCH ×4 (08:00→20:58)
[2017-10-04] MEDS: SODIUM CHLORIDE 0.9% FLUSH 10 ML FLUSH IV FLUSH SCH ×2 (09:00→20:54)
[2017-10-04] MEDS: MAGNESIUM HYDROXIDE SUSP 30 ML CUP PO SCH (09:01)
[2017-10-04] MEDS: CYANOCOBALAMIN 1,000 MCG TAB PO SCH (09:01)
[2017-10-04] MEDS: POLYETHYLENE GLYCOL 17 GM PKG PO SCH (09:01)
[2017-10-04] MEDS: DOCUSATE SODIUM 100 MG CAP PO SCH ×2 (09:02→20:54)
[2017-10-04] MEDS: FAMOTIDINE 20 MG TAB PO SCH ×2 (09:02→20:53)
[2017-10-04] MEDS: MULTIVITAMINS/MINERALS THERAPEUTIC TAB PO SCH (09:02)
[2017-10-04] MEDS: AMIODARONE 200 MG TAB PO SCH ×2 (09:02→20:53)
[2017-10-04] MEDS: ASPIRIN 81 MG CHEW TAB PO SCH (09:02)
[2017-10-04] MEDS: METOPROLOL TARTRATE 25 MG TAB PO SCH ×2 (09:02→21:00)
[2017-10-04] MEDS: CLOPIDOGREL 75 MG TAB PO SCH (09:02)
[2017-10-04 09:12] LABS: BANDS 6 % (0-6); NEUTROPHIL # MANUAL DIFF 12.6 TH/MM3 (1.8-7.7); POLYS (SEG NEUTROPHILS) 75 % (16-70); WBC DIFF SAMPLE 100
[2017-10-04 09:13] LABS: PLATELET ESTIMATE SMEAR NORMAL (NORMAL); PLATELET MORPHOLOGY NORMAL (NORMAL); SCAN/DIFF FINAL DIFF MANUAL; TOXIC GRANULATION 1+ (NORMAL)
[2017-10-04] MEDS ORDERED: SOD PHOSPHATE/SOD BIPHOSPHATE (ADULT) ENEMA 133ML RECTAL PRN (09:45)
[2017-10-04] MEDS ORDERED: BISACODYL 10 MG SUPP RECTAL PRN (09:45)
[2017-10-04] MEDS ORDERED: FUROSEMIDE 20 MG/2 ML VIAL IV PUSH ONE (11:00)
[2017-10-04] MEDS ORDERED: POTASSIUM CHLORIDE 10 MEQ CONTROLLED RELEASE TAB PO ONE (11:00)
[2017-10-04] MEDS: FERROUS SULFATE 325 MG (65 MG ELEMENTAL IRON) TAB PO SCH ×2 (11:11→17:02)
--- NOTE | 2017-10-04 16:08 | PD.CAR.PN ---
CVT Progress Note Subjective/Hospital Course: 82-year-old gentleman with known history of coronary artery disease status post PCI with angioplasty in 1991 with no stenting at that time, as well as known history abdominal aortic aneurysm status post stent grafting who now presented to the emergency room with complaints of substernal chest pain, shortness of breath following some yard work. The patient was evaluated at [facility] and underwent further workup including EKG, cardiac enzymes which were indicative of a non ST elevated myocardial infarction. He subsequently underwent coronary angiogram yesterday by Dr. Wayne Mccarthy which revealed a nondominant right coronary artery with distal 80% left main stenosis per report and preserved ventricular function. He was subsequently transferred to [facility] for further management. Upon arrival here he is pain free, hemodynamically stable with no evidence of ongoing ischemia. PAST MEDICAL HISTORY: Coronary disease status post PTCA without angioplasty 1991, . Abdominal aortic aneurysm, Hypertension, Restless leg syndrome, Gastroesophageal reflux disease. Abdominal aortic aneurysm repair with stent graft 09/30 pt remains pain free, scheduled for surgery in am 10/01 surgery : 1. Urgent Off-pump Coronary Artery Bypass Grafting x 2 with Left Internal Mammary Artery (VASQUEZ) to the Left Anterior Descending (LAD), reverse saphenous vein graft to the Ramus marginalis (RM) 2. Right Leg Endoscopic Vein [place] 3500cc crystalloid , 250cc cell saver, 500cc EBL 10/02 up in chair, on nasal cannula NSR, on BB statin ,amiodarone, plavix continue home meds transfer to stepdown 10/03 poor cough effort, needs aggressive pulm toileting chest tube drained 140cc/ 12 hrs, re-eval for removal later today very painful this am await bed in stepdown remains in NSR/ ECG noted, recheck today 10/04 on nasal cannula gentle diuresis chest tube removed without difficulty will add ensure to diet eval for dc to rehab in am no BM / additional GI motility meds given Objective: GENERAL: SKIN: Warm and dry. prevena dressing in place to chest , incision intact to right leg HEAD: Normocephalic. EYES: No scleral icterus. No injection or drainage. NECK: Supple, trachea midline. No JVD or lymphadenopathy. CARDIOVASCULAR: Regular rate and rhythm without murmurs, gallops, or rubs. RESPIRATORY: Breath sounds equal bilaterally. No accessory muscle use. GASTROINTESTINAL: Abdomen soft, non-tender, nondistended. MUSCULOSKELETAL: No cyanosis, or edema. BACK: Nontender without obvious deformity. No CVA tenderness. Vital Signs Date Time Temp Pulse Resp B/P (MAP) Pulse Ox O2 Delivery O2 Flow Rate FiO2 10/04/17 15:23 95 Nasal Cannula 3.00 10/04/17 15:23 97.5 76 20 103/56 (72) 95 10/04/17 14:00 65 10/04/17 13:36 95 Nasal Cannula 3.00 10/04/17 13:00 61 10/04/17 12:00 75 10/04/17 11:48 94 Nasal Cannula 4.00 10/04/17 11:48 97.8 63 20 105/54 (71) 94 10/04/17 11:00 68 10/04/17 10:00 64 10/04/17 09:00 68 10/04/17 08:00 64 10/04/17 07:36 96 Nasal Cannula 4.00 10/04/17 07:23 97.6 68 20 99/55 (70) 93 10/04/17 07:23 93 Nasal Cannula 4.00 10/04/17 07:00 66 10/04/17 04:00 98.4 68 18 118/66 (83) 96 10/04/17 03:42 96 Nasal Cannula 4.00 10/04/17 03:00 68 10/04/17 01:57 74 10/04/17 01:00 78 10/04/17 00:00 98.2 79 16 120/62 (81) 96 10/04/17 00:00 79 10/04/17 00:00 96 Nasal Cannula 4.00 10/03/17 20:00 96 Nasal Cannula 4.00 10/03/17 19:27 98.2 85 16 116/56 (76) 100 10/03/17 19:20 96 Nasal Cannula 3.00 10/03/17 19:00 87 10/03/17 16:30 94 Nasal Cannula 4.00 10/03/17 16:30 99.0 91 16 128/59 (82) 96 10/03/17 16:30 91 Labs: Laboratory Tests Test 10/04/17 05:00 White Blood Count 15.5 TH/MM3 (4.0-11.0) Red Blood Count 2.89 MIL/MM3 (4.50-5.90) Hemoglobin 8.6 GM/DL (13.0-17.0) Hematocrit 25.2 % (39.0-51.0) Mean Corpuscular Volume 87.1 FL (80.0-100.0) Mean Corpuscular Hemoglobin 29.7 PG (27.0-34.0) Mean Corpuscular Hemoglobin Concent 34.1 % (32.0-36.0) Red Cell Distribution Width 14.3 % (11.6-17.2) Platelet Count 231 TH/MM3 (150-450) Mean Platelet Volume 7.6 FL (7.0-11.0) CBC Comment AUTO DIFF Differential Total Cells Counted 100 Neutrophils % (Manual) 75 % (16-70) Band Neutrophils % 6 % (0-6) Lymphocytes % 12 % (9-44) Monocytes % 7 % (0-8) Neutrophils # (Manual) 12.6 TH/MM3 (1.8-7.7) Differential Comment FINAL DIFF MANUAL Toxic Granulation 1+ (NORMAL) Platelet Estimate NORMAL (NORMAL) Platelet Morphology Comment NORMAL (NORMAL) Result Diagram: 10/04/17 0500 10/03/17 0415 (1) Coronary artery disease (2) S/P CABG x 2 Plan: ASA , statin , BB , amiodarone replace mag OOB ambulate. PT/OT pulm toileting pain control gentle diuresis (3) Abdominal aortic aneurysm Plan: hx of stent (4) Hypertension Plan: controlled (5) Restless leg syndrome Plan: requip (6) Seizure disorder Plan: on Alise Joyce Oct 04, 2017 16:07
[2017-10-04] MEDS ORDERED: FERR325T20 PO (16:18)
[2017-10-04] MEDS ORDERED: THERM PO (16:18)
[2017-10-04] MEDS ORDERED: PLAV75TA29 PO (16:18)
[2017-10-04] MEDS ORDERED: METO25TA3 PO (16:18)
[2017-10-04] MEDS ORDERED: INDO25CA PO ×2 (16:18→16:26)
[2017-10-04] MEDS ORDERED: AMIO200T PO (16:18)
[2017-10-04] MEDS ORDERED: DOCU1CAP39 PO (16:18)
[2017-10-04] MEDS ORDERED: HYDR-3516 PO (16:18)
[2017-10-04] MEDS ORDERED: POLY17S PO (16:18)
--- NOTE | 2017-10-04 16:24 | HHI.DS ---
AndrzejAliseLeida NELSON 10/04/17 1624: Discharge Summary Admission Date Oct 01, 2017 at 11:30 Discharge Date: Oct 05, 2017 Admitting Diagnosis chest pain , NSTEMI (1) Coronary artery disease ICD Codes: I25.10 - Atherosclerotic heart disease of [place] coronary artery without angina pectoris (2) Restless leg syndrome Diagnosis: Principal ICD Codes: G25.81 - Restless legs syndrome Status: Chronic (3) Abdominal aortic aneurysm ICD Codes: I71.4 - Abdominal aortic aneurysm, without rupture Status: Chronic (4) Hypertension ICD Codes: I10 - Essential (primary) hypertension Status: Chronic (5) Seizure disorder ICD Codes: G40.909 - Epilepsy, unspecified, not intractable, without status epilepticus Status: Chronic (6) S/P CABG x 2 Diagnosis: Secondary ICD Codes: Z95.1 - Presence of aortocoronary bypass graft Status: Acute Procedures 1. Urgent Off-pump Coronary Artery Bypass Grafting x 2 with Left Internal Mammary Artery (VASQUEZ) to the Left Anterior Descending (LAD), reverse saphenous vein graft to the Ramus marginalis (RM) 2. Right Leg Endoscopic Vein [place] 3. Intraoperative Vein Mapping 10/01 Brief History 82-year-old gentleman with known history of coronary artery disease status post PCI with angioplasty in 1991 with no stenting at that time, as well as known history abdominal aortic aneurysm status post stent grafting who now presented to the emergency room with complaints of substernal chest pain, shortness of breath following some yard work. The patient was evaluated at [facility] and underwent further workup including EKG, cardiac enzymes which were indicative of a non ST elevated myocardial infarction. He subsequently underwent coronary angiogram yesterday by Dr. Wayne Mccarthy which revealed a nondominant right coronary artery with distal 80% left main stenosis per report and preserved ventricular function. He was subsequently transferred to [facility] for further management. Upon arrival here he is pain free, hemodynamically stable with no evidence of ongoing ischemia. PAST MEDICAL HISTORY: Coronary disease status post PTCA without angioplasty 1991, . Abdominal aortic aneurysm, Hypertension, Restless leg syndrome, Gastroesophageal reflux disease. Abdominal aortic aneurysm repair with stent graft CBC/BMP: 10/04/17 0500 10/03/17 0415 Significant Findings Laboratory Tests Test 10/02/17 04:30 10/03/17 04:15 10/04/17 05:00 Red Blood Count 2.99 MIL/MM3 (4.50-5.90) 2.65 MIL/MM3 (4.50-5.90) 2.89 MIL/MM3 (4.50-5.90) Hemoglobin 9.1 GM/DL (13.0-17.0) 8.0 GM/DL (13.0-17.0) 8.6 GM/DL (13.0-17.0) Hematocrit 26.4 % (39.0-51.0) 23.3 % (39.0-51.0) 25.2 % (39.0-51.0) Random Glucose 120 MG/DL (74-106) Calcium Level 8.1 MG/DL (8.5-10.1) 8.0 MG/DL (8.5-10.1) Estimat Glomerular Filtration Rate 73 ML/MIN (>89) 73 ML/MIN (>89) White Blood Count 13.7 TH/MM3 (4.0-11.0) 15.5 TH/MM3 (4.0-11.0) Neutrophils (%) (Auto) 74.7 % (16.0-70.0) Lymphocytes (%) (Auto) 7.2 % (9.0-44.0) Monocytes (%) (Auto) 14.6 % (0.0-8.0) Neutrophils # (Auto) 10.2 TH/MM3 (1.8-7.7) Monocytes # (Auto) 2.0 TH/MM3 (0-0.9) Blood Urea Nitrogen 24 MG/DL (7-18) Sodium Level 134 MEQ/L (136-145) Neutrophils % (Manual) 75 % (16-70) Neutrophils # (Manual) 12.6 TH/MM3 (1.8-7.7) Toxic Granulation 1+ (NORMAL) Imaging Last Impressions Chest X-Ray 10/02/17 0500 Signed Impressions: Service Date/Time: Monday, October 02, 2017 04:05 - CONCLUSION: 1. Status post sternotomy. Tubes and lines appear well placed. 2. Increased density basis related to some degree of atelectasis or consolidation. Andrew Fletcher MD Lower Extremity Ultrasound 09/29/17 0000 Signed Impressions: Service Date/Time: Friday, September 29, 2017 11:47 - CONCLUSION: Nonpatent superficial venous system bilaterally. Waldo Metzger MD Carotid Artery Ultrasound 09/29/17 0000 Signed Impressions: Service Date/Time: Friday, September 29, 2017 11:11 - CONCLUSION: Bilateral carotid disease with hemodynamic profound characteristic of less than 50%% stenosis. Waldo Metzger MD PE at Discharge GENERAL: A&O x 3 SKIN: Warm and dry. prevena dressing to chest , incision intact to right leg HEAD: Normocephalic. EYES: No scleral icterus. No injection or drainage. NECK: Supple, trachea midline. No JVD or lymphadenopathy. CARDIOVASCULAR: Regular rate and rhythm without murmurs, gallops, or rubs. RESPIRATORY: Breath sounds equal bilaterally. No accessory muscle use. GASTROINTESTINAL: Abdomen soft, non-tender, nondistended. MUSCULOSKELETAL: No cyanosis, or edema. BACK: Nontender without obvious deformity. No CVA tenderness. Hospital Course 09/30 pt remains pain free, scheduled for surgery in am 10/01 surgery : 1. Urgent Off-pump Coronary Artery Bypass Grafting x 2 with Left Internal Mammary Artery (VASQUEZ) to the Left Anterior Descending (LAD), reverse saphenous vein graft to the Ramus marginalis (RM) 2. Right Leg Endoscopic Vein [place] 3500cc crystalloid , 250cc cell saver, 500cc EBL 10/02 up in chair, on nasal cannula NSR, on BB statin ,amiodarone, plavix continue home meds transfer to stepdown 10/03 poor cough effort, needs aggressive pulm toileting chest tube drained 140cc/ 12 hrs, re-eval for removal later today very painful this am await bed in stepdown remains in NSR/ ECG noted, recheck today 10/[address] elevation/ on indocin x 2 weeks pain controlled chest tube removed without difficultly no BM / additional GI meds given eval for dc to rehab in am Pt Condition on Discharge: Good Discharge Disposition: Discharge to SNF Discharge Instructions DIET: Follow Instructions for: Heart Healthy Diet Activities you can perform: Full Weight Bearing, Shower Only-No Bath Activities to avoid: Strenuous Activity, Driving Additional Activity Instructio: no lifting > 8 lbs or gallon of milk Follow up Referrals: Cardiology - 4 Weeks with Stephan Mccarthy MD PCP Follow-up - 2 Weeks with Melo Cardona M.d. Surgical - 2 Weeks with Alise Donnelly New Medications: Amiodarone (Amiodarone) 200 Mg Tab 200 MG PO Q12HR for heart rhythm, #28 TAB 0 Refills for 2 weeks only, no refill Clopidogrel (Plavix) 75 Mg Tab 75 MG PO DAILY for Blood Clot Prevention, #30 TAB 2 Refills Docusate Sodium (Dok) 100 Mg Cap 100 MG PO BID for Constipation, #60 CAP 0 Refills Ferrous Sulfate (Ferosul) 325 Mg (65 Mg Iron) Tablet 325 MG PO BID@12,17 for anemia , #60 TAB 0 Refills Hydrocodone/Acetaminophen (Hydrocodone-Acetamin 5-325 mg) 5 Mg-325 Mg Tablet 1 TAB PO Q6HR PRN for PAIN SCALE 1 TO 5, #30 TAB 0 Refills Indomethacin (Indomethacin) 25 Mg Cap 25 MG PO Q8HR for pericarditis for 14 Days, #40 CAP 0 Refills Take with food, milk, or antacids to decrease stomach adverse effects. Metoprolol Tartrate (Metoprolol Tartrate) 25 Mg Tab 25 MG PO BID for Blood Pressure Management, #60 TAB 2 Refills Multiple Vitamins W/ Minerals (Thera M Plus) 1 Tab 1 TAB PO DAILY for multi vitamin, #30 TAB 2 Refills Polyethylene Glycol 3350 Powder (Polyethylene Glycol 3350 Powder) 17 Gram Pow 17 GM PO DAILY for Constipation, #30 PACKET 0 Refills Continued Medications: Amlodipine (Amlodipine) 5 Mg Tab 5 MG PO DAILY for Blood Pressure Management, #30 TAB 0 Refills Aspirin (Aspirin) 81 Mg Chew 81 MG CHEW DAILY, TAB 0 Refills Cyanocobalamin (Vitamin B-12) 1,000 Mcg Tab 1000 MCG PO DAILY for Nutritional Supplement, #1 BOTTLE 0 Refills Divalproex ER (Divalproex ER) 250 Mg Ezekiel 250 MG PO DAILY for Control Seizures, #30 TAB 0 Refills Famotidine Liq (Famotidine Liq) 40 Mg/5 Ml Susp 20 MG PO BID, #50 ML 0 Refills Ropinirole (Ropinirole) 2 Mg Tab 2 MG PO HS, #30 TAB 0 Refills Simvastatin (Simvastatin) 40 Mg Tab 40 MG PO HS for Cholesterol Management, #30 TAB 0 Refills Discontinued Medications: Atenolol (Tenormin) 50 Mg Tab 50 MG PO BID Enoxaparin Inj (Lovenox Inj) 80 mg/0.8 ML Syr 80 MG SQ DAILY for Blood Clot Prevention, SYRINGE 0 Refills Temazepam (Temazepam) 7.5 Mg Cap 7.5 MG PO HS PRN for INSOMNIA, #30 CAP 0 Refills Radha York MD 10/05/17 1141: Discharge Summary CBC/BMP: 10/04/17 0500 10/03/17 0415 Discharge Instructions Follow up Referrals: Cardiology - 4 Weeks with Stephan Mccarthy MD PCP Follow-up - 2 Weeks with Melo Cardona M.d. Surgical - 2 Weeks with Alise Donnelly New Medications: Amiodarone (Amiodarone) 200 Mg Tab 200 MG PO Q12HR for heart rhythm, #28 TAB 0 Refills for 2 weeks only, no refill Clopidogrel (Plavix) 75 Mg Tab 75 MG PO DAILY for Blood Clot Prevention, #30 TAB 2 Refills Docusate Sodium (Dok) 100 Mg Cap 100 MG PO BID for Constipation, #60 CAP 0 Refills Ferrous Sulfate (Ferosul) 325 Mg (65 Mg Iron) Tablet 325 MG PO BID@,17 for anemia , #60 TAB 0 Refills Hydrocodone/Acetaminophen (Hydrocodone-Acetamin 5-325 mg) 5 Mg-325 Mg Tablet 1 TAB PO Q6HR PRN for PAIN SCALE 1 TO 5, #30 TAB 0 Refills Indomethacin (Indomethacin) 25 Mg Cap 25 MG PO Q8HR for pericarditis for 14 Days, #40 CAP 0 Refills Take with food, milk, or antacids to decrease stomach adverse effects. Metoprolol Tartrate (Metoprolol Tartrate) 25 Mg Tab 25 MG PO BID for Blood Pressure Management, #60 TAB 2 Refills Multiple Vitamins W/ Minerals (Thera M Plus) 1 Tab 1 TAB PO DAILY for multi vitamin, #30 TAB 2 Refills Polyethylene Glycol 3350 Powder (Polyethylene Glycol 3350 Powder) 17 Gram Pow 17 GM PO DAILY for Constipation, #30 PACKET 0 Refills Continued Medications: Amlodipine (Amlodipine) 5 Mg Tab 5 MG PO DAILY for Blood Pressure Management, #30 TAB 0 Refills Aspirin (Aspirin) 81 Mg Chew 81 MG CHEW DAILY, TAB 0 Refills Cyanocobalamin (Vitamin B-12) 1,000 Mcg Tab 1000 MCG PO DAILY for Nutritional Supplement, #1 BOTTLE 0 Refills Divalproex ER (Divalproex ER) 250 Mg Ezekiel 250 MG PO DAILY for Control Seizures, #30 TAB 0 Refills Famotidine Liq (Famotidine Liq) 40 Mg/5 Ml Susp 20 MG PO BID, #50 ML 0 Refills Ropinirole (Ropinirole) 2 Mg Tab 2 MG PO HS, #30 TAB 0 Refills Simvastatin (Simvastatin) 40 Mg Tab 40 MG PO HS for Cholesterol Management, #30 TAB 0 Refills Discontinued Medications: Atenolol (Tenormin) 50 Mg Tab 50 MG PO BID Enoxaparin Inj (Lovenox Inj) 80 mg/0.8 ML Syr 80 MG SQ DAILY for Blood Clot Prevention, SYRINGE 0 Refills Temazepam (Temazepam) 7.5 Mg Cap 7.5 MG PO HS PRN for INSOMNIA, #30 CAP 0 Refills Alise Donnelly Oct 04, 2017 16:24 Radha York MD Oct 05, 2017 11:41
[2017-10-04] MEDS: PRAVASTATIN SOD 80 MG TAB PO SCH (20:53)
[2017-10-04] MEDS: DIVALPROEX SODIUM E.R. 250 MG TAB PO SCH (20:53)
[2017-10-04] MEDS: SENNOSIDES 8.6 MG TAB PO SCH (20:54)
[2017-10-05] VITALS (27 sets, daily range): BP systolic 85–123; BP diastolic 53–68; PULSE 53–120; RESP 16–20; TEMP 97.3–98; O2SAT 93–96
[2017-10-05 04:46] LABS: AUTOMATED NEUTROPHIL # 7.7 TH/MM3 (1.8-7.7); BASOPHIL # 0.1 TH/MM3 (0-0.2); BASOPHIL % 0.6 % (0.0-2.0); EOSINOPHIL # 0.8 TH/MM3 (0-0.4); EOSINOPHIL % 7.7 % (0.0-4.0); HEMATOCRIT 25.3 % (39.0-51.0); HEMO FLAGS DIFF FINAL; MEAN CELL VOLUME 87.9 FL (80.0-100.0); MEAN CORPUSCULAR HGB CONC 35.3 % (32.0-36.0); MONO % 11.5 % (0.0-8.0); NEUT % 71.2 % (16.0-70.0); PLATELET COUNT 240 TH/MM3 (150-450); RED BLOOD COUNT 2.88 MIL/MM3 (4.50-5.90); RED CELL DISTRIBUTION WIDTH 14.3 % (11.6-17.2); WHITE BLOOD COUNT 10.8 TH/MM3 (4.0-11.0)
[2017-10-05 05:04] LABS: BICARBONATE 28.2 MEQ/L (21.0-32.0); MAGNESIUM 2.4 MG/DL (1.5-2.5); POTASSIUM 3.9 MEQ/L (3.5-5.1)
[2017-10-05] MEDS: PANTOPRAZOLE SOD 40 MG DELAYED RELEASE TAB PO SCH (06:42)
[2017-10-05] MEDS: INDOMETHACIN 25 MG CAP PO SCH ×3 (06:42→21:00)
--- NOTE | 2017-10-05 06:48 | RADRPT ---
EXAM DATE/TIME: 10/05/2017 04:25 [place] COMPARISON: CHEST SINGLE AP, October 02, 2017, 4:05. INDICATIONS : Shortness of breath, possible pneumothorax. MEDICAL HISTORY : Hypertension. Myocardial infarction. SURGICAL HISTORY : Cholecystectomy. Left hip arthroplasty ENCOUNTER: Subsequent ACUITY: 1 week PAIN SCORE: 0/10 LOCATION: Bilateral chest FINDINGS: Portable AP view of the chest demonstrates a normal-sized cardiac silhouette with calcification of th e aorta post median sternotomy. There is an endoluminal stent graft overlying the descending thoracic aorta. The left chest tube has been removed and no pneumothorax is visualized. Right IJ line has bee n removed. There is mild left basilar pleural-parenchymal opacity. Asymmetric apical thickening remai ns present. CONCLUSION: 1. No pneumothorax following left chest tube removal. 2. There is stable left basilar opacity likely representing small pleural effusion with associated vo lume loss and/or consolidation. Andrew Andrews MD on October 05, 2017 at 6:45 Board Certified Radiologist. This report was verified electronically.
[2017-10-05] MEDS: INSULIN ASPART SUPPLEMENTAL SCALE SQ SCH ×4 (08:00→20:53)
[2017-10-05] MEDS: MAGNESIUM HYDROXIDE SUSP 30 ML CUP PO SCH (08:08)
[2017-10-05] MEDS: MULTIVITAMINS/MINERALS THERAPEUTIC TAB PO SCH (08:08)
[2017-10-05] MEDS: ASPIRIN 81 MG CHEW TAB PO SCH (08:08)
[2017-10-05] MEDS: CYANOCOBALAMIN 1,000 MCG TAB PO SCH (08:08)
[2017-10-05] MEDS: METOPROLOL TARTRATE 25 MG TAB PO SCH ×2 (08:09→21:00)
[2017-10-05] MEDS: CLOPIDOGREL 75 MG TAB PO SCH (08:09)
[2017-10-05] MEDS: FAMOTIDINE 20 MG TAB PO SCH ×2 (08:09→21:00)
[2017-10-05] MEDS: AMIODARONE 200 MG TAB PO SCH ×2 (08:09→21:01)
[2017-10-05] MEDS: DOCUSATE SODIUM 100 MG CAP PO SCH ×2 (08:09→21:00)
[2017-10-05] MEDS: SODIUM CHLORIDE 0.9% FLUSH 10 ML FLUSH IV FLUSH SCH ×2 (08:10→21:01)
[2017-10-05] MEDS: ACETAMINOPHEN/HYDROcodone 325 MG/5 MG TAB PO PRN ×2 (08:10→22:19)
[2017-10-05] MEDS: POLYETHYLENE GLYCOL 17 GM PKG PO SCH (08:10)
[2017-10-05] MEDS: FERROUS SULFATE 325 MG (65 MG ELEMENTAL IRON) TAB PO SCH ×2 (14:20→17:39)
[2017-10-05] MEDS: DIVALPROEX SODIUM E.R. 250 MG TAB PO SCH (21:00)
[2017-10-05] MEDS: PRAVASTATIN SOD 80 MG TAB PO SCH (21:00)
[2017-10-05] MEDS: SENNOSIDES 8.6 MG TAB PO SCH (21:00)
[2017-10-06] VITALS (26 sets, daily range): BP systolic 103–122; BP diastolic 54–61; PULSE 53–97; RESP 16–18; TEMP 96.2–97.5; O2SAT 91–98
[2017-10-06] MEDS: INDOMETHACIN 25 MG CAP PO SCH ×3 (05:10→21:00)
[2017-10-06] MEDS: PANTOPRAZOLE SOD 40 MG DELAYED RELEASE TAB PO SCH (05:11)
[2017-10-06] MEDS: INSULIN ASPART SUPPLEMENTAL SCALE SQ SCH ×4 (08:00→20:50)
[2017-10-06] MEDS: SODIUM CHLORIDE 0.9% FLUSH 10 ML FLUSH IV FLUSH SCH ×2 (09:00→21:00)
--- NOTE | 2017-10-06 09:30 | PD.CAR.PN ---
CVT Progress Note Subjective/Hospital Course: 82-year-old gentleman with known history of coronary artery disease status post PCI with angioplasty in 1991 with no stenting at that time, as well as known history abdominal aortic aneurysm status post stent grafting who now presented to the emergency room with complaints of substernal chest pain, shortness of breath following some yard work. The patient was evaluated at [facility] and underwent further workup including EKG, cardiac enzymes which were indicative of a non ST elevated myocardial infarction. He subsequently underwent coronary angiogram yesterday by Dr. Wayne Mccarthy which revealed a nondominant right coronary artery with distal 80% left main stenosis per report and preserved ventricular function. He was subsequently transferred to [facility] for further management. Upon arrival here he is pain free, hemodynamically stable with no evidence of ongoing ischemia. PAST MEDICAL HISTORY: Coronary disease status post PTCA without angioplasty 1991, . Abdominal aortic aneurysm, Hypertension, Restless leg syndrome, Gastroesophageal reflux disease. Abdominal aortic aneurysm repair with stent graft 09/30 pt remains pain free, scheduled for surgery in am 10/01 surgery : 1. Urgent Off-pump Coronary Artery Bypass Grafting x 2 with Left Internal Mammary Artery (VASQUEZ) to the Left Anterior Descending (LAD), reverse saphenous vein graft to the Ramus marginalis (RM) 2. Right Leg Endoscopic Vein [place] 3500cc crystalloid , 250cc cell saver, 500cc EBL 10/02 up in chair, on nasal cannula NSR, on BB statin ,amiodarone, plavix continue home meds transfer to stepdown 10/03 poor cough effort, needs aggressive pulm toileting chest tube drained 140cc/ 12 hrs, re-eval for removal later today very painful this am await bed in stepdown remains in NSR/ ECG noted, recheck today 10/04 on nasal cannula gentle diuresis chest tube removed without difficulty will add ensure to diet eval for dc to rehab in am no BM / additional GI motility meds given 10/06/17 c/o blood in stool - apparently has h/o hemorrhoids He was supposed to be discharged to SNF yesterday, but has been depayed secondary to insurance issues. No other c/o. Objective: Vital Signs Date Time Temp Pulse Resp B/P (MAP) Pulse Ox O2 Delivery O2 Flow Rate FiO2 10/06/17 09:00 95 10/06/17 06:00 56 12/3/17 05:00 59 10/06/17 04:00 64 10/06/17 03:30 93 Room Air 10/06/17 03:30 97.3 62 16 103/59 (74) 93 10/06/17 03:00 60 10/06/17 02:00 61 10/06/17 01:00 57 10/06/17 00:00 56 10/05/17 23:15 95 Nasal Cannula 2.00 10/05/17 23:15 97.6 55 16 95/54 (68) 95 10/05/17 23:00 53 10/05/17 22:00 53 10/05/17 21:00 21 10/05/17 21:00 62 10/05/17 20:00 97.9 61 16 110/57 (74) 95 10/05/17 20:00 66 10/05/17 20:00 95 Nasal Cannula 2.00 10/05/17 19:00 63 10/05/17 18:01 66 10/05/17 17:00 62 10/05/17 16:01 60 10/05/17 15:45 97.4 69 18 123/58 (79) 94 10/05/17 15:45 94 Room Air 10/05/17 15:00 62 10/05/17 14:00 54 10/05/17 13:01 62 10/05/17 12:00 62 10/05/17 11:45 97.3 54 20 85/53 (64) 93 10/05/17 11:45 93 Room Air 10/05/17 11:00 56 10/05/17 10:00 60 Result Diagram: 10/05/178 10/05/17427 Cardiovascular: RRR Pulmonary: CTA GI/: NABS, NT Incision: dry and intact Plan: Will check H and H - if decreased, consult GI. SNF transfer pending (1) Coronary artery disease (2) S/P CABG x 2 Plan: ASA , statin , BB , amiodarone replace mag OOB ambulate. PT/OT pulm toileting pain control gentle diuresis (3) Abdominal aortic aneurysm Plan: hx of stent (4) Hypertension Plan: controlled (5) Restless leg syndrome Plan: requip (6) Seizure disorder Plan: on Radha Yeung MD Oct 06, 2017 09:30
[2017-10-06] MEDS: FAMOTIDINE 20 MG TAB PO SCH ×2 (09:46→21:00)
[2017-10-06] MEDS: CLOPIDOGREL 75 MG TAB PO SCH (09:46)
[2017-10-06] MEDS: POLYETHYLENE GLYCOL 17 GM PKG PO SCH (09:46)
[2017-10-06] MEDS: MULTIVITAMINS/MINERALS THERAPEUTIC TAB PO SCH (09:46)
[2017-10-06] MEDS: METOPROLOL TARTRATE 25 MG TAB PO SCH ×2 (09:46→21:06)
[2017-10-06] MEDS: MAGNESIUM HYDROXIDE SUSP 30 ML CUP PO SCH (09:46)
[2017-10-06] MEDS: CYANOCOBALAMIN 1,000 MCG TAB PO SCH (09:46)
[2017-10-06] MEDS: DOCUSATE SODIUM 100 MG CAP PO SCH ×2 (09:46→21:01)
[2017-10-06] MEDS: ASPIRIN 81 MG CHEW TAB PO SCH (09:47)
[2017-10-06] MEDS: AMIODARONE 200 MG TAB PO SCH ×2 (09:47→21:00)
[2017-10-06 11:27] LABS: HEMATOCRIT 28.8 % (39.0-51.0); MEAN CELL VOLUME 87.9 FL (80.0-100.0); MEAN CORPUSCULAR HEMOGLOBIN 28.3 PG (27.0-34.0); MEAN CORPUSCULAR HGB CONC 32.2 % (32.0-36.0); PLATELET COUNT 397 TH/MM3 (150-450); RED BLOOD COUNT 3.28 MIL/MM3 (4.50-5.90); RED CELL DISTRIBUTION WIDTH 14.3 % (11.6-17.2); REVIEW FLAG FINAL; WHITE BLOOD COUNT 13.6 TH/MM3 (4.0-11.0)
[2017-10-06] MEDS: FERROUS SULFATE 325 MG (65 MG ELEMENTAL IRON) TAB PO SCH ×2 (12:48→17:42)
[2017-10-06] MEDS: PRAVASTATIN SOD 80 MG TAB PO SCH (21:00)
[2017-10-06] MEDS: ACETAMINOPHEN/HYDROcodone 325 MG/5 MG TAB PO PRN (21:00)
[2017-10-06] MEDS: DIVALPROEX SODIUM E.R. 250 MG TAB PO SCH (21:00)
[2017-10-06] MEDS: SENNOSIDES 8.6 MG TAB PO SCH (21:01)
[2017-10-07] VITALS (21 sets, daily range): BP systolic 98–116; BP diastolic 54–57; PULSE 52–62; RESP 16–19; TEMP 97.4–97.5; O2SAT 94–96
[2017-10-07] MEDS: PANTOPRAZOLE SOD 40 MG DELAYED RELEASE TAB PO SCH (06:07)
[2017-10-07] MEDS: INDOMETHACIN 25 MG CAP PO SCH ×2 (06:07→13:52)
[2017-10-07] MEDS: INSULIN ASPART SUPPLEMENTAL SCALE SQ SCH ×3 (08:00→17:00)
[2017-10-07] MEDS: POLYETHYLENE GLYCOL 17 GM PKG PO SCH (08:53)
[2017-10-07] MEDS: MAGNESIUM HYDROXIDE SUSP 30 ML CUP PO SCH (08:54)
[2017-10-07] MEDS: CYANOCOBALAMIN 1,000 MCG TAB PO SCH (08:55)
[2017-10-07] MEDS: ACETAMINOPHEN/HYDROcodone 325 MG/5 MG TAB PO PRN (08:55)
[2017-10-07] MEDS: DOCUSATE SODIUM 100 MG CAP PO SCH (08:55)
[2017-10-07] MEDS: METOPROLOL TARTRATE 25 MG TAB PO SCH (08:56)
[2017-10-07] MEDS: MULTIVITAMINS/MINERALS THERAPEUTIC TAB PO SCH (08:56)
[2017-10-07] MEDS: AMIODARONE 200 MG TAB PO SCH (08:57)
[2017-10-07] MEDS: ASPIRIN 81 MG CHEW TAB PO SCH (08:57)
[2017-10-07] MEDS: FAMOTIDINE 20 MG TAB PO SCH (08:57)
[2017-10-07] MEDS: CLOPIDOGREL 75 MG TAB PO SCH (08:57)
[2017-10-07] MEDS: SODIUM CHLORIDE 0.9% FLUSH 10 ML FLUSH IV FLUSH SCH (09:02)
[2017-10-07] MEDS: FERROUS SULFATE 325 MG (65 MG ELEMENTAL IRON) TAB PO SCH ×2 (12:17→17:10)
--- NOTE | 2017-10-07 16:04 | PD.CAR.PN ---
CVT Progress Note Subjective/Hospital Course: 82-year-old gentleman with known history of coronary artery disease status post PCI with angioplasty in 1991 with no stenting at that time, as well as known history abdominal aortic aneurysm status post stent grafting who now presented to the emergency room with complaints of substernal chest pain, shortness of breath following some yard work. The patient was evaluated at [facility] and underwent further workup including EKG, cardiac enzymes which were indicative of a non ST elevated myocardial infarction. He subsequently underwent coronary angiogram yesterday by Dr. Wayne Mccarthy which revealed a nondominant right coronary artery with distal 80% left main stenosis per report and preserved ventricular function. He was subsequently transferred to [facility] for further management. Upon arrival here he is pain free, hemodynamically stable with no evidence of ongoing ischemia. PAST MEDICAL HISTORY: Coronary disease status post PTCA without angioplasty 1991, . Abdominal aortic aneurysm, Hypertension, Restless leg syndrome, Gastroesophageal reflux disease. Abdominal aortic aneurysm repair with stent graft 09/30 pt remains pain free, scheduled for surgery in am 10/01 surgery : 1. Urgent Off-pump Coronary Artery Bypass Grafting x 2 with Left Internal Mammary Artery (VASQUEZ) to the Left Anterior Descending (LAD), reverse saphenous vein graft to the Ramus marginalis (RM) 2. Right Leg Endoscopic Vein [place] 3500cc crystalloid , 250cc cell saver, 500cc EBL 10/02 up in chair, on nasal cannula NSR, on BB statin ,amiodarone, plavix continue home meds transfer to stepdown 10/03 poor cough effort, needs aggressive pulm toileting chest tube drained 140cc/ 12 hrs, re-eval for removal later today very painful this am await bed in stepdown remains in NSR/ ECG noted, recheck today 10/04 on nasal cannula gentle diuresis chest tube removed without difficulty will add ensure to diet eval for dc to rehab in am no BM / additional GI motility meds given 10/06/17 c/o blood in stool - apparently has h/o hemorrhoids He was supposed to be discharged to SNF yesterday, but has been depayed secondary to insurance issues. No other c/o. 10/07 waiting on SNF placement on room air weak with PT needs assistance Objective: GENERAL: SKIN: Warm and dry. prevena to chest , incision intact to leg HEAD: Normocephalic. EYES: No scleral icterus. No injection or drainage. NECK: Supple, trachea midline. No JVD or lymphadenopathy. CARDIOVASCULAR: Regular rate and rhythm without murmurs, gallops, or rubs. RESPIRATORY: Breath sounds equal bilaterally. No accessory muscle use. GASTROINTESTINAL: Abdomen soft, non-tender, nondistended. MUSCULOSKELETAL: No cyanosis, or edema. BACK: Nontender without obvious deformity. No CVA tenderness. Vital Signs Date Time Temp Pulse Resp B/P (MAP) Pulse Ox O2 Delivery O2 Flow Rate FiO2 10/07/17 15:00 52 10/07/17 15:00 97.4 55 16 112/54 (73) 94 10/07/17 14:00 52 10/07/17 13:00 55 10/07/17 12:00 55 10/07/17 11:00 52 10/07/17 11:00 97.5 52 19 98/55 (69) 96 10/07/17 10:04 17 10/07/17 10:00 60 10/07/17 09:00 57 10/07/17 08:00 61 10/07/17 07:50 94 21 10/07/17 07:00 97.4 57 17 116/56 (76) 94 10/07/17 07:00 55 10/07/17 06:00 58 10/07/17 05:00 61 10/07/17 04:00 57 10/07/17 03:00 97.5 56 16 111/57 (75) 94 10/07/17 03:00 62 10/07/17 02:00 56 10/07/17 01:00 59 10/07/17 00:00 56 10/06/17 23:20 93 Room Air 10/06/17 23:20 97.3 57 16 106/59 (75) 93 10/06/17 23:00 55 10/06/17 22:00 56 10/06/17 20:30 97.5 60 16 103/54 (70) 98 10/06/17 20:30 98 Room Air 10/06/17 20:00 68 10/06/17 19:00 57 10/06/17 18:00 58 10/06/17 17:00 58 Result Diagram: 10/06/17 1053 10/05/17 0428 (1) Coronary artery disease (2) S/P CABG x 2 Plan: ASA , statin , BB , amiodarone replace mag OOB ambulate. PT/OT pulm toileting pain control (3) Abdominal aortic aneurysm Plan: hx of stent (4) Hypertension Plan: controlled (5) Restless leg syndrome Plan: requip (6) Seizure disorder Plan: on Alise Joyce Oct 07, 2017 16:04
[2017-10-07] MEDS ORDERED: WALKER WHEELS/F1 MIS (16:55)
[2017-10-07] MEDS ORDERED: COMMODE 3-IN-11 MIS (16:58)
== END 2017-10-07 18:45 | disposition home health service (06) | DRG 236 ==
LOC: HCPC 16:48 → OBSVTOIN 10-01 11:30 → HCVI 10-01 12:00 → HCPC 10-03 15:20
PROVIDERS: ADMIT Thoracic Surgery (Cardiothoracic Vascular Surgery); ATTEND Thoracic Surgery (Cardiothoracic Vascular Surgery)
PROC: 06BP4ZZ Excision of Right Saphenous Vein, Percutaneous Endoscopic Approach (ICD-10-PCS; 2017-10-01)
PROC: 021009W Bypass Coronary Artery, One Artery from Aorta with Autologous Venous Tissue, Open Approach (ICD-10-PCS; principal; 2017-10-01 07:27)
PROC: 0210099 Bypass Coronary Artery, One Artery from Left Internal Mammary with Autologous Venous Tissue, Open Approach (ICD-10-PCS; 2017-10-01 07:27)
DX: I21.4 Non-ST elevation (NSTEMI) myocardial infarction (principal); J44.9 Chronic obstructive pulmonary disease, unspecified; G40.909 Epilepsy, unspecified, not intractable, without status epilepticus; I25.10 Atherosclerotic heart disease of native coronary artery without angina pectoris; I10 Essential (primary) hypertension; G25.81 Restless legs syndrome; Z96.642 Presence of left artificial hip joint; K21.9 Gastro-esophageal reflux disease without esophagitis; Z86.79 Personal history of other diseases of the circulatory system; Z98.61 Coronary angioplasty status
CPT/HCPCS: 71010; 71020; 76937; 80048; 80053; 81001; 82948; 83036; 83735; 85007; 85025; 85027; 85610; 85730; 86850; 86900; 86901; 86920; 86922; 87641; 93005; 93880; 93970; 93998; 94002; 94010; 94150; 94640; 94664; 94667; 94668; C1768; J0131; J0690; J1250; J1644; J1650; J1815; J1817; J1885; J1940; J2250; J2370; J2440; J2720; J3010; J3370; J3475; J3480; J7040; J7050; J7120; P9045

== ENCOUNTER 2018-06-05 16:11 | Inpatient (IN) ==
[2018-06-05] MEDS ORDERED: Sodium Chlor 0.9% Inj 500 ML IV.SIG ONE (16:28)
--- NOTE | 2018-06-05 16:50 | ED ---
HPI General Chief complaint: Respiratory Symptoms Stated complaint: SOB Time Seen by Provider: 06/05/18 16:19 Source: patient and family Limitations: no limitations History of Present Illness Complaint: generalized weakness Onset (ago): week(s) (2) Duration: constant and progressively worsening Location: generalized Severity: severe Relieving factors: none Exacerbating factors: none Context: other (known lung mass) Associated symptoms: shortness of breath Related Data Home Medications Medication Instructions Recorded Confirmed amitriptyline 50 mg PO DAILY 06/05/18 06/05/18 benazepril 5 mg PO HS 06/05/18 06/05/18 clonazepam [Klonopin] 0.5 mg PO DAILY 06/05/18 06/05/18 clonazepam [Klonopin] 2 mg PO HS 06/05/18 06/05/18 divalproex 250 mg PO HS 06/05/18 06/05/18 ferrous sulfate [iron] 325 mg PO DAILY 06/05/18 06/05/18 folic acid 1 mg PO DAILY 06/05/18 06/05/18 memantine 5 mg PO BID 06/05/18 06/05/18 ropinirole 4 mg PO TID 06/05/18 06/05/18 vitamin B complex 1 tab PO DAILY 06/05/18 06/05/18 Allergies Allergy/AdvReac Type Severity Reaction Status Date / Time No Known Allergies Allergy Unverified 06/05/18 16:25 Review of Systems Constitutional Reports fatigue, Denies fever(s), Reports lethargy, Reports poor appetite, Reports weakness and Reports weight loss Eyes Reports system reviewed and no additional complaints, except as [facility] ENT Reports dry mouth Cardiovascular Reports chest pain (left upper) Respiratory Reports system reviewed and no additional complaints, except as docu and Reports hemoptysis Gastrointestinal Reports other (no appetite) Genitourinary Reports system reviewed and no additional complaints, except as [facility] Musculoskeletal Reports muscle weakness Integumentary/Breasts Reports system reviewed and no additional complaints, except as [facility] Neurologic Reports system reviewed and no additional complaints, except as [facility] Psychiatric Reports system reviewed and no additional complaints, except as [facility] Endocrine Reports system reviewed and no additional complaints, except as [facility] Hematologic/Lymphatic Reports system reviewed and no additional complaints, except as [facility] Allergic/Immunologic Reports system reviewed and no additional complaints, except as docu PMFSH Medical History Medical History FH: abdominal aortic aneurysm repair (Acute) History of hip fracture (Acute) Lung mass (Acute) Thoracic aortic aneurysm (Acute) Surgical History Surgical History History of cholecystectomy (Acute) History of coronary artery bypass graft x 2 (Acute) Social History Social History Substance History: No History of Abuse Smoking Status: Former smoker How Often Do You Have a Drink Containing Alcohol: Never Recent Out of Country Travel within the Last 8 Weeks: No Immunization History Tetanus Immunization: Unsure Hx Influenza Vaccine This Season: No Exam Const General: cooperative, acute distress respiratory, frail appearing, ill appearing and No well hydrated Nutritional Appearance: cachectic, malnourished and thin Orientation: alert, awake and oriented x3 HENMT Head: normal to inspection, normocephalic and atraumatic Mouth: moist mucous membranes abnormal (dry) Eyes Conjunctivae: conjunctivae normal Sclera: sclerae normal EOM: EOM intact bilaterally Neck Neck: normal visual inspection and full ROM Chest Chest: other (very thin. ribs protruding.) Resp Effort & Inspection: tachypneic Auscultation: clear to auscultation bilaterally Cardio Rate: regular rate Rhythm: regular rhythm GI Inspection: scaphoid Palpation: soft Back/Spine/Pelvis Cervical Spine: cervical ROM normal Thoracic/Lumbar Spine: thoraco-lumbar ROM normal Skin General: atrophy Neuro General: alert, awake, oriented x3, moves all extremities and CN's II-XI intact bilaterally Extrem General: normal to inspection and full ROM Psych Appearance: grossly normal Mental Status: mental status grossly normal Mood: congruent mood Affect: normal affect Attitude: cooperative Thought Process: normal Thought Content: normal Judgment: judgment good Course Consultations Consultation #1: Dr. Quach Time: 17:00 Consultation #2: Dr. Gonzales Time: 18:07 Initial Documented Vital Signs Temperature 98.6 F 06/05/18 16:21 Pulse Rate 88 06/05/18 16:21 Respiratory Rate 22 06/05/18 16:21 Blood Pressure 129/68 06/05/18 16:21 Pulse Oximetry 96 06/05/18 16:21 Last Documented Vital Signs Temperature 98.6 F 06/05/18 16:21 Pulse Rate 77 06/05/18 17:25 Respiratory Rate 22 06/05/18 16:21 Blood Pressure 141/74 H 06/05/18 17:25 Pulse Oximetry 96 06/05/18 17:25 Medical Decision Making MDM Narrative Medical decision making narrative: This patient was sent to us from Dr. Espino' s office for weakness and hypoxia. He has a known left upper lobe mass. Dr. Espino is planning to biopsy that. The patient was seen in his office today for an unscheduled visit because of increasing dyspnea. He was sent straight to us after his sats were noted to be in the 70s with the request to work him up in the emergency department and then admitted to the hospital. He will see the patient in the hospital. Dr. Espino has seen the patient in the emergency department. He has requested nebulizer treatments, Solu-Medrol and antibiotics. He would like for the patient to be admitted to [facility] Differential Diagnosis Differential Diagnosis: Differential diagnosis of dyspnea includes but is not limited to congestive heart failure, pneumonia, wheezing, pneumothorax, pulmonary embolism Differential diagnosis of weakness includes but is not limited to infection, CVA , electrolyte disturbance, renal failure, hypoglycemia Lab Data Lab results reviewed: Yes I reviewed the patient's lab results. Result diagrams: 06/05/18 17:05 06/05/18 17:05 Lab Results 06/05/18 06/05/18 Range/Units 17:05 17:05 CBC w Diff Auto diff final WBC 7.4 (4.0-11.0) th/mm3 RBC 3.85 L (4.50-5.90) mil/mm3 Hgb 12.0 L (13.0-17.0) gm/dL Hct 35.0 L (39.0-51.0) % MCV 90.8 (80.0-100.0) fL MCH 31.0 (27.0-34.0) pg MCHC 34.2 (32.0-36.0) % RDW 16.1 (11.6-17.2) % Plt Count 230 (150-450) th/mm3 MPV 8.1 (7.0-11.0) fL Neut % (Auto) 85.1 H (16.0-70.0) % Lymph % (Auto) 4.4 L (9.0-44.0) % [place] % (Auto) 8.9 H (0.0-8.0) % Eos % (Auto) 0.0 (0.0-4.0) % Baso % (Auto) 1.6 (0.0-2.0) % Neut # (Auto) 6.3 (1.8-7.7) th/mm3 Lymph # (Auto) 0.3 L (1.0-4.8) th/mm3 [place] # (Auto) 0.7 (0.0-0.9) th/mm3 Eos # (Auto) 0.0 (0.0-0.4) th/mm3 Baso # (Auto) 0.1 (0.0-0.2) th/mm3 WBC Differential . Differential Comment . Sodium 137 (136-145) meq/L Potassium 4.5 (3.5-5.1) meq/L Chloride 100 (98-107) meq/L Carbon Dioxide 29.4 (21.0-32.0) meq/L Anion Gap 8 (5-15) meq/L BUN 32 H (7-18) mg/dL Creatinine 1.20 (0.60-1.30) mg/dL Estimated GFR 58 L (>89) mL/min Random Glucose 112 H (74-106) mg/dL Calcium 9.2 (8.5-10.1) mg/dL Total Bilirubin 1.2 H (0.2-1.0) mg/dL AST 38 H (15-37) U/L ALT 47 (12-78) U/L Alkaline Phosphatase 67 (45-117) U/L Troponin I Less than 0.02 L (0.02-0.05) ng/mL Total Protein 7.8 (6.4-8.2) g/dL Albumin 3.4 (3.4-5.0) g/dL Imaging Data Radiologist's impression: Chest X-Ray 06/05/18 16:28 CONCLUSION: 1. COPD. 2. New patchy infiltrate in the left lower lung suggestive of pneumonia. ECG Data EKG Prior to Arrival: No Attestation: I personally reviewed and interpreted this ECG as follows: (EKG shows a sinus rhythm with LVH. No acute STT wave changes.) Discharge Plan Discharge Disposition Patient Disposition: 30 Still Patient Discharge Details Diagnosis: Dyspnea, Weakness, Lung mass, Pneumonia Physicians Team ED Provider: Danielle Andrews Primary Care Provider: Melo Cardona Other Providers: Andrew Quach V Rxs /Orders / Referrals /Forms Prescriptions: No Action divalproex 250 mg Tablet,Delayed Release (Dr/Ec) 250 mg PO HS RF: 0 benazepril 5 mg Tablet 5 mg PO HS RF: 0 clonazepam [Klonopin] 0.5 mg Tablet 0.5 mg PO DAILY RF: 0 amitriptyline 50 mg Tablet 50 mg PO DAILY RF: 0 ferrous sulfate [iron] 325 mg (65 mg iron) Tablet 325 mg PO DAILY RF: 0 clonazepam [Klonopin] 2 mg Tablet 2 mg PO HS RF: 0 vitamin B complex Tablet 1 tab PO DAILY RF: 0 folic acid 1 mg Tablet 1 mg PO DAILY RF: 0 ropinirole 4 mg Tablet 4 mg PO TID RF: 0 memantine 5 mg Tablet 5 mg PO BID RF: 0 Status ED Status: With Doctor
[2018-06-05 17:15] LABS: Baso # (Auto) 0.1 th/mm3 (0.0-0.2); Baso % (Auto) 1.6 % (0.0-2.0); Lymph # (Auto) 0.3 th/mm3 (1.0-4.8); Lymph % (Auto) 4.4 % (9.0-44.0); Mean Corpuscular HGB Conc 34.2 % (32.0-36.0); Mean Corpuscular Volume 90.8 fL (80.0-100.0); Mean Platelet Volume 8.1 fL (7.0-11.0); Mono # (Auto) 0.7 th/mm3 (0.0-0.9); Mono % (Auto) 8.9 % (0.0-8.0); Neut # (Auto) 6.3 th/mm3 (1.8-7.7); Neut % (Auto) 85.1 % (16.0-70.0); Platelet Count 230 th/mm3 (150-450); Red Blood Count 3.85 mil/mm3 (4.50-5.90); Red Cell Distribution Width 16.1 % (11.6-17.2); White Blood Count 7.4 th/mm3 (4.0-11.0)
[2018-06-05 17:23] LABS: Chloride 100 meq/L (98-107); Potassium 4.5 meq/L (3.5-5.1); Sodium 137 meq/L (136-145)
[2018-06-05 17:25] LABS: Calcium 9.2 mg/dL (8.5-10.1)
[2018-06-05 17:26] LABS: Albumin 3.4 g/dL (3.4-5.0); Anion Gap 8 meq/L (5-15); Blood Urea Nitrogen 32 mg/dL (7-18); Carbon Dioxide 29.4 meq/L (21.0-32.0); Glucose,Random 112 mg/dL (74-106)
--- NOTE | 2018-06-05 17:26 | XR ---
EXAM DATE: 06/05/2018 5:23 PM EDT AGE/SEX: 83 years / Male INDICATIONS: Short of breath. CLINICAL DATA: This is the patient's initial encounter. Patient reports that signs and symptoms have been present for 1 week and indicates a pain score of 0/10. MEDICAL/SURGICAL HISTORY: . Hypertension. Myocardial infarction. . Cholecystectomy. Left hip arthroplasty COMPARISON: POI, XR RIBS W/ PA CHEST, LEFT, 01/01/2018. . FINDINGS: Today's exam there appears to be a new patchy infiltrate in the left lower lung. There is hyperaerati on of both lung de anda with some chronic interstitial changes. The right lung is grossly clear. The h eart size is stable. There are no pleural effusions. There is evidence of a previous stent in the bianca cending thoracic aorta. The bony structures are stable. CONCLUSION: 1. COPD. 2. New patchy infiltrate in the left lower lung suggestive of pneumonia. Electronically signed by: Avila Adams MD 06/05/2018 5:25 PM EDT
[2018-06-05 17:29] LABS: Alanine Aminotransferase 47 U/L (12-78); Aspartate Aminotransferase 38 U/L (15-37); Glomerular Filtration Rate 58 mL/min (>89)
[2018-06-05 17:31] LABS: Total Protein 7.8 g/dL (6.4-8.2)
[2018-06-05 17:32] LABS: Alkaline Phosphatase 67 U/L (45-117)
[2018-06-05] MEDS ORDERED: Azithromycin Inj 500 MG in Sodium Chlor 0.9% Inj 250 ML IV.SIG ONE (17:57)
[2018-06-05] MEDS ORDERED: MethylPREDNISolone Sod Succinate Inj 125 MG/2 ML Vial IV.PUSH ONE (17:57)
[2018-06-05] MEDS ORDERED: Acetaminophen 325 MG Tablet PO PRN (18:11)
[2018-06-05] MEDS: Sod Chloride 0.9% Inj 1,000 ML IV.CONT SCH (18:38)
[2018-06-05] MEDS: Divalproex 250 MG DR Tablet PO SCH (22:53)
[2018-06-05] MEDS: clonazePAM 1 MG Tablet PO SCH (22:53)
[2018-06-05] MEDS: Temazepam 15 MG Capsule PO PRN (23:56)
[2018-06-05] MEDS: Lisinopril 5 MG Tablet PO SCH (23:57)
[2018-06-06 06:06] LABS: Potassium 3.8 meq/L (3.5-5.1)
[2018-06-06 06:11] LABS: Baso % (Auto) 0.1 % (0.0-2.0); Eos % (Auto) 0.2 % (0.0-4.0); Hematocrit 28.6 % (39.0-51.0); Hemoglobin 10.2 gm/dL (13.0-17.0); Lymph # (Auto) 0.3 th/mm3 (1.0-4.8); Lymph % (Auto) 4.6 % (9.0-44.0); Mean Corpuscular HGB Conc 35.8 % (32.0-36.0); Mean Corpuscular Hemoglobin 33.4 pg (27.0-34.0); Mean Corpuscular Volume 93.4 fL (80.0-100.0); Mean Platelet Volume 8.2 fL (7.0-11.0); Mono # (Auto) 0.5 th/mm3 (0.0-0.9); Mono % (Auto) 6.3 % (0.0-8.0); Neut # (Auto) 6.3 th/mm3 (1.8-7.7); Neut % (Auto) 88.8 % (16.0-70.0); Platelet Count 200 th/mm3 (150-450); Red Blood Count 3.06 mil/mm3 (4.50-5.90); Red Cell Distribution Width 15.6 % (11.6-17.2); White Blood Count 7.2 th/mm3 (4.0-11.0)
[2018-06-06 06:23] LABS: Calcium 8.3 mg/dL (8.5-10.1)
[2018-06-06] MEDS: Sod Chloride 0.9% Inj 1,000 ML IV.CONT SCH (06:47)
--- NOTE | 2018-06-06 08:49 | ECG ---
Date Performed: 06/05/2018 Time Performed: 16:23:14 PTAGE: 83 years EKG: Sinus rhythm WITH FIRST DEGREE AV BLOCK VOLTAGE CRITERIA FOR LVH ABNORMAL ECG PREVIOUS TRACING : 10/03/2017 09.26 Compared to previous tracing, anterior and lateral ST eleva tion is no longer evident. DOCTOR: John Mendoza Interpretating Date/Time 06/06/2018 08:48:05
--- NOTE | 2018-06-06 11:38 | P.HPIM ---
History of Present Illness Primary Care Physician: Melo Cardona Chief Complaint: SOB History of Present Illness: The patient is a poor historian. He is not able to articulate his medical history. I discussed the case with his electronic tester Dr. Cabral. Apparently he has been doing fairly well until a few weeks ago when he started to decline with worsening shortness of breath with minimal activity. He has been losing weight. He was sent from Dr. Cabral's office for weakness and hypoxia. Workup in the emergency room revealed a left lower lobe pneumonia. The patient also has a known left lung mass which needs further workup. The patient is somewhat somnolent but he knows he was sent to the hospital for shortness of breath. - Diagnosis (1) Dyspnea (2) Weakness (3) Lung mass (4) Pneumonia Inpatient Certification: I certify that the inpatient services were ordered in accordance with Medicare regulations governing the order. This includes certification that hospital inpatient services are reasonable and necessary and in the case of services not specified as inpatient-only under 42 CFR 419.22(n), that they are appropriately provided as inpatient services in accordance to with the 2-midnight benchmark under 43 CFR 412.3(e) Estimated Total Length of Stay (Days): 4 Plans for Post Hospital Care: Not yet determined Review of Systems unobtainable due to mental status, other (Poor historian.) [facility] - History History Provided By: Patient - Medical History Medical History: Medical History (Last Reviewed 06/06/18 @ 11:10 by Shima Zamora MD) FH: abdominal aortic aneurysm repair History of hip fracture Lung mass Thoracic aortic aneurysm - Surgical History Surgical History: Surgical History (Last Reviewed 06/06/18 @ 11:10 by Shima Zamora MD) History of cholecystectomy History of coronary artery bypass graft x 2 - Family History Family History: Family History (Last Updated 06/06/18 @ 11:11 by Shima Zamora MD) Other Family history non-contributory - Tobacco History Second Hand Smoke Exposure: No Tobacco Use In Past 30 Days: No Smoking Status: Former smoker Tobacco Type: Cigarettes - Alcohol History How Often Do You Have a Drink Containing Alcohol: Monthly or less - Substance Use History Substance History: No History of Abuse - Travel History Recent Travel Out of the Country Within the Last 8 Weeks: No - Immunization History Tetanus Immunization: Unsure Hx Influenza Vaccine This Season: No Medications and Allergies Active Medications: Active Medications Acetaminophen (Tylenol) 650 mg PO Q4H PRN PRN Reason: Temp > 100.4 Albuterol (Duoneb Neb ([facility])) 1 ampul NEB Q4HR NEB [facility] Last Admin: 06/06/18 07:18 Dose: 1 ampul Amitriptyline HCl (Elavil) 50 mg PO DAILY [facility] Last Admin: 06/06/18 09:15 Dose: 50 mg Clonazepam (Klonopin) 2 mg PO [facility] Last Admin: 06/05/18 22:53 Dose: 2 mg Divalproex Sodium (Depakote Dr) 250 mg PO HS [facility] Last Admin: 06/05/18 22:53 Dose: 250 mg Sodium Chloride (Ns Inj) 1,000 mls @ 100 mls/hr IV.CONT .Q10H [facility] Last Admin: 06/06/18 06:47 Dose: 100 mls/hr Lactulose (Lactulose Liq) 30 ml PO DAILY PRN PRN Reason: SEVERE CONSITIPATION Lisinopril (Prinivil) 5 mg PO [facility] Last Admin: 06/05/18 23:57 Dose: 5 mg Memantine (Namenda) 5 mg PO BID [facility] Last Admin: 06/06/18 09:15 Dose: 5 mg Metoclopramide HCl (Reglan Inj) 5 mg IV.PUSH Q6HR PRN; Protocol PRN Reason: NAUSEA OR VOMITING Ropinirole HCl (Requip) 4 mg PO TID [facility] Last Admin: 06/06/18 09:15 Dose: 4 mg Temazepam (Restoril) 15 mg PO HS PRN PRN Reason: INSOMNIA Last Admin: 06/05/18 23:56 Dose: 15 mg Allergies Allergy/AdvReac Type Severity Reaction Status Date / Time No Known Allergies Allergy Unverified 06/05/18 16:25 Home Medications Medication Instructions Recorded Confirmed Type amitriptyline 50 mg PO DAILY 06/05/18 06/05/18 History benazepril 5 mg PO HS 06/05/18 06/05/18 History clonazepam [Klonopin] 0.5 mg PO DAILY 06/05/18 06/05/18 History clonazepam [Klonopin] 2 mg PO 06/05/18 06/05/18 History divalproex 250 mg PO 06/05/18 06/05/18 History ferrous sulfate [iron] 325 mg PO DAILY 06/05/18 06/05/18 History folic acid 1 mg PO DAILY 06/05/18 06/05/18 History memantine 5 mg PO BID 06/05/18 06/05/18 History ropinirole 4 mg PO TID 06/05/18 06/05/18 History vitamin B complex 1 tab PO DAILY 06/05/18 06/05/18 History Exam Vital signs: Vital Signs 06/05/18 16:21 06/05/18 16:28 06/05/18 17:25 Temperature 98.6 F Pulse Rate 88 77 Respiratory Rate 22 Blood Pressure 129/68 141/74 H Pulse Oximetry 96 96 96 06/05/18 18:45 06/05/18 18:52 06/05/18 19:04 Temperature Pulse Rate 79 79 79 Respiratory Rate 18 18 18 Blood Pressure Pulse Oximetry 06/05/18 20:34 06/05/18 20:45 06/06/18 00:00 Temperature 98.5 F 97.4 F L Pulse Rate 85 90 81 Respiratory Rate 18 20 20 Blood Pressure 139/74 124/67 107/63 Pulse Oximetry 93 L 92 L 91 L 06/06/18 00:54 06/06/18 07:21 06/06/18 08:00 Temperature 96.1 F L Pulse Rate 80 66 68 Respiratory Rate 20 18 18 Blood Pressure 97/53 L Pulse Oximetry 95 92 L 94 L Intake & Output 06/05/18 06/06/18 06/06/18 18:59 06:59 18:59 Intake Total 500 / 500 1710 / 1710 Output Total 725 / 725 Balance 500 / 500 985 / 985 Weight 52 kg 53.3 kg Intake: IV 500 / 500 1350 / 1350 NS Inj 1,000 ML @ 100 mls/hr IV 1000 / 1000 .CONT .Q10H KARYNA Rx#:[id number] Azithromycin Inj 500 MG In NS 250 / 250 Inj 250 ML @ 250 mls/hr IV.SIG ONCE ONE Rx#:[id number] NS Inj 500 ML @ Wide Open IV. 500 / 500 SIG BOLUS ONE Rx#:[id number] Rocephin Inj 1,000 MG In NS Inj 100 / 100 100 ML @ 200 mls/hr IV.SIG ONCE ONE Rx#:[id number] Oral 360 / 360 Output: Urine 725 / 725 Other: # Voids 1 Narrative: CONSTITUTIONAL/GENERAL: Cachectic and frail-appearing male in no acute distress. Somewhat somnolent. SKIN: No jaundice, rashes, or concerning lesions. Not diaphoretic. HEAD: Atraumatic. Normocephalic. EYES: Pupils equal and round and reactive. Extra ocular motions are intact. No scleral icterus. No injection or drainage. NECK: Trachea midline. Neck is supple, non-tender. No palpable thyroid enlargement or nodularity. CARDIOVASCULAR: Normal rate and regular rhythm without murmurs, gallops, or rubs. No JVD. Peripheral pulses 2+ and symmetric. RESPIRATORY/CHEST: unlabored respirations. Markedly diminished breath sounds bilaterally. Scattered left basilar rhonchi. GASTROINTESTINAL: Abdomen soft, non-tender, non-distended. No hepato- splenomegaly, or palpable masses. No guarding. Bowel sounds present. MUSCULOSKELETAL: Extremities without clubbing, cyanosis, or edema. No joint tenderness or effusion noted. No calf tenderness. No mottling or clubbing. NEUROLOGICAL: Awake and alert. Motor and sensory grossly within normal limits. Follows commands. Generalized weakness. No focal deficits. PSYCHIATRIC: No obvious mood problems. No apparent hallucinations or other psychotic thought process. Results - Labs CBC & Chem 7: 06/06/18 05:00 06/06/18 05:00 Labs: Short CBC 06/05/18 06/06/18 Range/Units 17:05 05:00 WBC 7.4 7.2 (4.0-11.0) th/mm3 Hgb 12.0 L 10.2 L (13.0-17.0) gm/dL Hct 35.0 L 28.6 L (39.0-51.0) % Plt Count 230 200 (150-450) th/mm3 BMP 06/05/18 06/06/18 17:05 05:00 Sodium 137 138 Potassium 4.5 3.8 Chloride 100 104 Carbon Dioxide 29.4 27.0 BUN 32 H 27 H Creatinine 1.20 0.84 Calcium 9.2 8.3 L D Cardiac Enzymes 06/05/18 Range/Units 17:05 Troponin I Less than 0.02 L (0.02-0.05) ng/mL Liver Function 06/05/18 Range/Units 17:05 Total Bilirubin 1.2 H (0.2-1.0) mg/dL AST 38 H (15-37) U/L ALT 47 (12-78) U/L Alkaline Phosphatase 67 (45-117) U/L Albumin 3.4 (3.4-5.0) g/dL - Imaging Impressions Chest X-Ray 06/05/18 16:28 CONCLUSION: 1. COPD. 2. New patchy infiltrate in the left lower lung suggestive of pneumonia. Caprini VTE Risk Assessment Caprini VTE Risk Assessment: Moderate/High Risk (score >= 2) Caprini Risk Assessment Model: Point Value = 1 Point Value = 2 Point Value = 3 Point Value = 5 Age 41-60 Minor surgery BMI > 25 kg/m2 Swollen legs Varicose veins or History of unexplained or recurrent spontaneous Oral contraceptives or hormone replacement Sepsis (< 1 month) Serious lung disease, including pneumonia (< 1 month) Abnormal pulmonary function Acute myocardial infarction Congestive heart failure (< 1 month) History of inflammatory bowel disease Medical patient at bed rest Age 61-74 Arthroscopic surgery Major open surgery (> 45 min) Laparoscopic surgery (> 45 min) Malignancy Confined to bed (> 72 hours) Immobilizing plaster cast Central venous access Age >= 75 History of VTE Family history of VTE Factor V Leiden Prothrombin [id number] Lupus anticoagulant Anticardiolipin antibodies Elevated serum homocysteine Heparin-induced thrombocytopenia Other congenital or acquired thrombophilia Stroke (< 1 month) Elective arthroplasty Hip, pelvis, or leg fracture Acute spinal cord injury (< 1 month) Prophylaxis Regimen: Total Risk Factor Score Risk Level Prophylaxis Regimen 0-1 Low Early ambulation 2 Moderate Order ONE of the following: *Sequential Compression Device (SCD) *Heparin 5000 units SQ BID 3-4 Higher Order ONE of the following medications: *Heparin 5000 units SQ TID *Enoxaparin/Lovenox 40 mg SQ daily (WT < 150 kg, CrCl > 30 mL/min) *Enoxaparin/Lovenox 30 mg SQ daily (WT < 150 kg, CrCl > 10-29 mL/min) *Enoxaparin/Lovenox 30 mg SQ BID (WT < 150 kg, CrCl > 30 mL/min) AND/OR *Sequential Compression Device (SCD) 5 or more Highest Order ONE of the following medications: *Heparin 5000 units SQ TID (Preferred with Epidurals) *Enoxaparin/Lovenox 40 mg SQ daily (WT < 150 kg, CrCl > 30 mL/min) *Enoxaparin/Lovenox 30 mg SQ daily (WT < 150 kg, CrCl > 10-29 mL/min) *Enoxaparin/Lovenox 30 mg SQ BID (WT < 150 kg, CrCl > 30 mL/min) AND *Sequential Compression Device (SCD) Assessment and Plan - Assessment (1) Dyspnea Code(s): R06.00 - Dyspnea, unspecified Status: Acute (2) Weakness Code(s): R53.1 - Weakness Status: Acute (3) Lung mass Code(s): R91.8 - Other nonspecific abnormal finding of lung field Status: Acute (4) Pneumonia Code(s): J18.9 - Pneumonia, unspecified organism Status: Acute - Plan 83-year-old male with known left upper lobe lung mass admitted with pneumonia and hypoxemia. Pneumonia/hypoxemia/lung mass: -Shale Processing Technician, Dr. Cabral following. -Continue antibiotics with Rocephin and azithromycin. Lung biopsy scheduled for today. -Duo nebs and supplemental oxygen -Continue IV fluid for now. Generalized weakness: -Could be secondary to above. -We will have physical therapy evaluate him tomorrow. Continue his chronic home medications including cardiac medications and dementia medications. Discussed Condition With: Dr. Cabral and Dr. Peralta (1) Dyspnea Qualifiers: Dyspnea type: shortness of breath Qualified Code(s): R06.02 - Shortness of breath; R06.00 - Dyspnea, unspecified; R06.01 - Orthopnea (4) Pneumonia Qualifiers: Pneumonia type: due to unspecified organism Laterality: left Lung location: lower lobe of lung Qualified Code(s): J18.1 - Lobar pneumonia, unspecified organism
[2018-06-06] MEDS ORDERED: Sodium Chloride 0.45 % Inj 1,000 ML IV.CONT SCH (11:45)
[2018-06-06] MEDS: MethylPREDNISolone Sod Succinate Inj 40 MG/ML Vial IV.PUSH SCH ×2 (12:57→23:19)
[2018-06-06] MEDS: Azithromycin 250 MG Tablet PO SCH (12:57)
--- NOTE | 2018-06-06 14:22 | CT ---
EXAM DATE: 06/06/2018 12:10 PM EDT AGE/SEX: 83 years / Male INDICATIONS: Left lung mass. COMPARISON: POI, CTA CHEST, 05/13/2018. . FINDINGS: The patient is an 83-year-old who was sent for CT-guided biopsy of a mass along the anterior aspect o f the left upper lobe. The lesion measured 1.8 x 1.5 cm on the previous CTA dated 05/13/2018. The patient was brought to the CT scan suite. Limited CT imaging of the thorax was performed. The les ion along the anterior aspect of the right upper lobe is considerably smaller and less dense in size. As such, no CT biopsy of this lesion was performed. CONCLUSION: 1. The lesion in the anterior aspect of the left upper lobe is decreased in size. No CT biopsy was p erformed. Electronically signed by: Williams Peralta MD 06/06/2018 2:21 PM EDT
[2018-06-06 17:17] LABS: Bilirubin,Urine Negative (Negative); Clarity,Urine Clear (Clear); Color,Urine Yellow (Yellw/Straw); Glucose,Urine (UA) Negative (Negative); Leukocyte Esterase,Urine Negative (Negative); Nitrite,Urine Negative (Negative); Specific Gravity,Urine Greater/Equal 1.030 (1.002-1.035); Urobilinogen,Urine 0.2 mg/dL (Less than 2)
[2018-06-06 17:23] LABS: RBC,Urine 0-3 /hpf (0-3); WBC,Urine 0-5 /hpf (0-5)
[2018-06-06 17:24] LABS: Bacteria,Urine Rare /hpf
--- NOTE | 2018-06-06 18:58 | P.PN ---
Subjective Interval history: Has some cough and remains weak. No fever. Lung nodule is now smaller and may not need to be Biopsied. Physical Exam Vital signs: Vital Signs 06/05/18 19:04 06/05/18 20:34 06/05/18 20:45 Temperature 98.5 F Pulse Rate 79 85 90 Respiratory Rate 18 18 20 Blood Pressure 139/74 124/67 Pulse Oximetry 93 L 92 L 06/06/18 00:00 06/06/18 00:54 06/06/18 07:21 Temperature 97.4 F L Pulse Rate 81 80 66 Respiratory Rate 20 20 18 Blood Pressure 107/63 Pulse Oximetry 91 L 95 92 L 06/06/18 08:00 06/06/18 11:19 06/06/18 12:00 Temperature 96.1 F L 96.6 F L Pulse Rate 100 H 94 H 62 Respiratory Rate 18 18 18 Blood Pressure 97/53 L 103/58 L Pulse Oximetry 94 L 92 L 96 06/06/18 15:15 06/06/18 16:00 Temperature 96.2 F L Pulse Rate 65 67 Respiratory Rate 18 18 Blood Pressure 101/58 L Pulse Oximetry 96 Intake & Output 06/05/18 06/06/18 06/06/18 18:59 06:59 18:59 Intake Total 500 / 500 1710 / 1710 Output Total 725 / 725 Balance 500 / 500 985 / 985 Weight 52 kg 53.3 kg Intake: IV 500 / 500 1350 / 1350 NS Inj 1,000 ML @ 100 mls/hr IV 1000 / 1000 .CONT .Q10H KARYNA Rx#:[id number] Azithromycin Inj 500 MG In NS 250 / 250 Inj 250 ML @ 250 mls/hr IV.SIG ONCE ONE Rx#:[id number] NS Inj 500 ML @ Wide Open IV. 500 / 500 SIG BOLUS ONE Rx#:[id number] Rocephin Inj 1,000 MG In NS Inj 100 / 100 100 ML @ 200 mls/hr IV.SIG ONCE ONE Rx#:[id number] Oral 360 / 360 Output: Urine 725 / 725 Other: # Voids 1 GENERAL: Elderly Thin W/M SKIN: Cool and dry. HEAD: Atraumatic. Normocephalic. EYES: Pupils equal and round. No scleral icterus. No injection or drainage. ENT: No nasal bleeding or discharge. Mucous membranes pink and moist. NECK: Trachea midline. No JVD. CARDIOVASCULAR: Regular rate and rhythm. RESPIRATORY: No accessory muscle use. Occ wheeze heard. Breath sounds equal bilaterally. GASTROINTESTINAL: Abdomen soft, non-tender, nondistended. Hepatic and splenic margins not palpable. MUSCULOSKELETAL: Extremities with clubbing, cyanosis, or edema. No obvious deformities. NEUROLOGICAL: Awake and alert. No obvious cranial nerve deficits. Motor grossly within normal limits. Five out of 5 muscle strength in the arms and legs. PSYCHIATRIC: Appropriate mood and affect. - Urinary Catheter Management Indwelling Urethral Catheter Cath placed during this visit: yes Reason for continuing: Acute urinary retention Insertion date: 06/06/18 Insertion time: 16:10 Results - Labs CBC & Chem 7: 06/06/18 05:00 06/06/18 05:00 Laboratory Results - last 24 hr 06/06/18 06/06/18 06/06/18 05:00 05:00 17:15 CBC w Diff Auto diff final WBC 7.2 RBC 3.06 L Hgb 10.2 L Hct 28.6 L MCV 93.4 MCH 33.4 MCHC 35.8 RDW 15.6 Plt Count 200 MPV 8.2 Neut % (Auto) 88.8 H Lymph % (Auto) 4.6 L [place] % (Auto) 6.3 Eos % (Auto) 0.2 Baso % (Auto) 0.1 Neut # (Auto) 6.3 Lymph # (Auto) 0.3 L [place] # (Auto) 0.5 Eos # (Auto) 0.0 Baso # (Auto) 0.0 WBC Differential . Differential Comment . Sodium 138 Potassium 3.8 Chloride 104 Carbon Dioxide 27.0 Anion Gap 7 BUN 27 H Creatinine 0.84 Estimated GFR 88 L Random Glucose 134 H Calcium 8.3 L D Urine Color Yellow Urine Clarity Clear Urine pH 6.0 Ur Specific [place] Greater/equal 1.030 Urine Protein 30 H Urine Glucose (UA) Negative Urine Ketones Negative Urine Occult Blood Negative Urine Nitrate Negative Urine Bilirubin Negative Urine Urobilinogen 0.2 Ur Leukocyte Esterase Negative Urine RBC 0-3 Urine WBC 0-5 Urine Bacteria Rare H Hyaline Casts 4-10 H Micro UA Comment Cath-culture ind Urine Culture Comments Cath-cult indicated - Imaging Impressions Chest X-Ray 06/05/18 16:28 CONCLUSION: 1. COPD. 2. New patchy infiltrate in the left lower lung suggestive of pneumonia. CT Consultation 06/06/18 00:00 CONCLUSION: 1. The lesion in the anterior aspect of the left upper lobe is decreased in size. No CT biopsy was performed. Assessment and Plan - Assessment (1) COPD (chronic obstructive pulmonary disease) with chronic bronchitis Code(s): J44.9 - Chronic obstructive pulmonary disease, unspecified Status: Acute (2) Dyspnea Code(s): R06.00 - Dyspnea, unspecified Status: Acute (3) Weakness Code(s): R53.1 - Weakness Status: Acute (4) Lung mass Code(s): R91.8 - Other nonspecific abnormal finding of lung field Status: Acute - Plan 1. Continue Rocephin 1 G IV and Zithromax 500 mg daily 2. O2 2 L N/c 3. Duoneb nebs qid. 4. CXR ,CBC,BMP in am 5. PFT at Bedside. 6. Symbicort 160/4.5 mcg , 2 puffs BID (2) Dyspnea Qualifiers: Dyspnea type: shortness of breath Qualified Code(s): R06.02 - Shortness of breath; R06.00 - Dyspnea, unspecified; R06.01 - Orthopnea
--- NOTE | 2018-06-06 19:16 | MB ---
cc: Guanaco Cabral MD DATE: 06/05/2018 CHIEF COMPLAINT: COPD and hypoxia. HISTORY OF HISTORY OF PRESENT ILLNESS: This is an 83-year-old white male with a prior history of COPD, has been experiencing weakness, shortness of breath, cough and had been taking little orally and has lost weight up to 10 pounds. The patient was recently sent for a CT chest, which showed a nodular infiltrate in the left upper lung and was advised further workup. The patient, however, became more short of breath and thus had to be brought in to the emergency room for evaluation where he was noted to be dehydrated and a chest x-ray showed evidence of a left lower lobe pneumonia. He brings up very little mucus. Denies hemoptysis. He has no fevers or chills and denies nausea, vomiting or aspiration. PAST MEDICAL AND SURGICAL HISTORY: Has included history of COPD. He has had a cholecystectomy in the past and history for coronary artery bypass grafting x 2. He also has had abdominal aortic aneurysm repair and a history of a hip fracture with repair. Denies history of hypertension or diabetes. HABITS: The patient smoked 1 pack per day for over 30 years. No significant alcohol intake. ALLERGIES: NO DRUG ALLERGIES ARE LISTED. MEDICATIONS: Med list was reviewed from the chart, which included: 1. Klonopin 2 mg at bedtime. 2. Amitriptyline 50 mg daily. 3. DuoNeb solution via nebulizer t.i.d. 4. Depakote 250 mg at bedtime. 5. Namenda 5 mg b.i.d. 6. Ropinirole 4 mg t.i.d. 7. Temazepam 15 mg at bedtime. FAMILY HISTORY: Noncontributory. REVIEW OF SYSTEMS: The patient is a poor historian, does not volunteer any information. He has weakness, dizziness, poor appetite and loss of sleep. He has depression and anxiety. He has memory loss and he has arthritis to the extremities. PHYSICAL EXAMINATION: GENERAL: This is an emaciated looking elderly white male who is pale and dyspneic at rest. VITAL SIGNS: Blood pressure is 110/70, pulse is 85, respirations 20, temperature 98.5. HEENT: Head is normocephalic. Pupils are reactive and equal. Tongue is dry. Throat is injected. Nasal mucosa is crusted. NECK: Supple. No lymphadenopathy. No venous distention. No thyromegaly. CHEST: Equal movements with an increased AP diameter with decreased breath sounds at the bases and wheezes were scattered bilaterally, occasional crackles at the bases. HEART: Sounds are irregular S1 and S2, with no murmur. No S3. ABDOMEN: Soft, scaphoid, without masses. No organomegaly or tenderness. Bowel sounds are active. EXTREMITIES: Muscle wasting with diminished peripheral pulses. Reflexes are 1+ with no gross motor deficits. NEUROLOGIC: Cranial nerves grossly intact. SKIN: Dry and scaly. IMPRESSION: 1. Left basilar pneumonia with hypoxemia. 2. Chronic obstructive pulmonary disease with emphysema. 3. History of coronary artery disease. 4. Left lung mass. 5. Dementia. PLAN: The patient will be maintained on O2 at 2 liters nasal cannula. We will get a radiology consultation for possible needle aspiration of the left lung nodule. We will continue with antibiotic therapy, including Rocephin 1 gram IV daily and also place him on Solu-Medrol 40 mg b.i.d. and Zithromax 500 mg p.o. daily. The patient will also be sent for a pulmonary function study and hopefully we can wean him off the oxygen over the next 2 days. Thank you, Dr. Zamora, for this consultation. VLeida Cabral MD [facility] , 06:53 PM , 07:04 PM
[2018-06-06] MEDS: Divalproex 250 MG DR Tablet PO SCH (23:20)
[2018-06-06] MEDS: clonazePAM 1 MG Tablet PO SCH (23:20)
[2018-06-06] MEDS: Lisinopril 5 MG Tablet PO SCH (23:21)
[2018-06-07] MEDS: Budesonide-Formoterol 160/4.5 MCG 6 GM Inhaler INH SCH ×3 (00:53→20:56)
[2018-06-07] MEDS: Sod Chloride 0.9% Inj 1,000 ML IV.CONT SCH ×5 (05:42→22:59)
--- NOTE | 2018-06-07 06:36 | XR ---
EXAM DATE: 06/07/2018 6:30 AM EDT AGE/SEX: 83 years / Male INDICATIONS: Shortness of breath CLINICAL DATA: This is the patient's subsequent encounter. Patient reports that signs and symptoms h ave been present for 1 week and indicates a pain score of 0/10. MEDICAL/SURGICAL HISTORY: Chronic obstructive pulmonary disease. Hypertension. Myocardial infar ction . Aortic stent COMPARISON: HPO, CHEST 1V SINGLE AP, 06/05/2018. . FINDINGS: There is increasing consolidation in the left lower lung, now with loss of delineation of the entire left hemidiaphragm. The right lung and the left upper lung remain clear. No evidence of pneumothorax. Evidence of prior median sternotomy and descending aorta stent. CONCLUSION: Increasing left lower lobe consolidation. Electronically signed by: Waldo Metzger MD 06/07/2018 6:34 AM EDT
[2018-06-07 08:12] LABS: Hematocrit 31.8 % (39.0-51.0); Hemoglobin 11.6 gm/dL (13.0-17.0); Mean Corpuscular Hemoglobin 33.2 pg (27.0-34.0); Mean Corpuscular Volume 90.7 fL (80.0-100.0); Mean Platelet Volume 8.2 fL (7.0-11.0); Platelet Count 238 th/mm3 (150-450); Red Blood Count 3.51 mil/mm3 (4.50-5.90); Red Cell Distribution Width 15.2 % (11.6-17.2)
[2018-06-07 08:18] LABS: Mean Corpuscular HGB Conc 36.6 % (32.0-36.0)
[2018-06-07 08:19] LABS: Chloride 105 meq/L (98-107); Potassium 3.4 meq/L (3.5-5.1); Sodium 140 meq/L (136-145)
[2018-06-07 08:22] LABS: Calcium 8.4 mg/dL (8.5-10.1)
[2018-06-07 08:23] LABS: Anion Gap 6 meq/L (5-15); Blood Urea Nitrogen 23 mg/dL (7-18); Carbon Dioxide 29.3 meq/L (21.0-32.0); Glucose,Random 100 mg/dL (74-106)
[2018-06-07 08:26] LABS: Glomerular Filtration Rate Greater Than 89 mL/min (>89)
[2018-06-07] MEDS ORDERED: Vancomycin Consult Pharmacy 1 EACH OTHER SCH (08:29)
[2018-06-07] MEDS ORDERED: Vancomycin Inj 1 GM/200 ML PIGGYBACK IV.SIG SCH (09:00)
[2018-06-07] MEDS: MethylPREDNISolone Sod Succinate Inj 40 MG/ML Vial IV.PUSH SCH ×2 (09:44→20:53)
[2018-06-07] MEDS: Azithromycin 250 MG Tablet PO SCH (09:45)
[2018-06-07] MEDS ORDERED: Pharmacy Ordered Lab Info OTHER ONE (10:00)
--- NOTE | 2018-06-07 10:03 | P.PNIM ---
Subjective Interval history: More awake today. Required restraint last night. Cooperative this morning. Chest x-ray shows worsening consolidations. Physical Exam Vital signs: Vital Signs 06/06/18 11:19 06/06/18 12:00 06/06/18 15:15 Temperature 96.6 F L Pulse Rate 94 H 62 65 Respiratory Rate 18 18 18 Blood Pressure 103/58 L Pulse Oximetry 92 L 96 06/06/18 16:00 06/06/18 19:30 06/06/18 20:00 Temperature 96.2 F L 96.3 F L Pulse Rate 67 67 103 H Respiratory Rate 18 20 18 Blood Pressure 101/58 L 104/55 L Pulse Oximetry 96 96 95 06/07/18 00:00 06/07/18 04:00 06/07/18 07:27 Temperature 96.5 F L 96.3 F L Pulse Rate 99 H 66 63 Respiratory Rate 18 18 20 Blood Pressure 107/59 L 110/60 Pulse Oximetry 93 L 96 93 L 06/07/18 08:00 Temperature 97.2 F L Pulse Rate 94 H Respiratory Rate 18 Blood Pressure 115/71 Pulse Oximetry 95 Intake & Output 06/06/18 06/07/18 06/07/18 18:59 06:59 18:59 Intake Total 940 / 940 1200 / 1200 Output Total 500 / 500 250 / 250 Balance 440 / 440 950 / 950 Weight 53.4 kg Intake: IV 700 / 700 1200 / 1200 NS Inj 1,000 ML @ 100 mls/hr IV 600 / 600 1200 / 1200 .CONT .Q10H KARYNA Rx#:[id number] Rocephin Inj 1,000 MG In NS Inj 100 / 100 100 ML @ 200 mls/hr IV.SIG Q24H KARYNA Rx#:[id number] Oral 240 / 240 0 / 0 Output: Urine 500 / 500 250 / 250 Stool 0 / 0 Narrative: GENERAL: This is a well-nourished, well-developed patient, in no apparent distress. CARDIOVASCULAR: Normal rate and regular rhythm without murmurs, gallops, or rubs. RESPIRATORY: unlabored respirations. Markedly diminished breath sounds bilaterally. Scattered left basilar rhonchi. GASTROINTESTINAL: Abdomen soft, non-tender, non-distended. Normal active bowel sounds MUSCULOSKELETAL: Extremities without cyanosis, or edema. NEURO: Alert & Oriented to self only. Moves all extremities 4 but significant generalized weakness PSYCH: Calm today. - Urinary Catheter Management Indwelling Urethral Catheter Cath placed during this visit: yes Reason for continuing: Chronic Urinary Retention Insertion date: 06/06/18 Insertion time: 16:10 Results - Labs CBC & Chem 7: 06/07/18 06:12 06/07/18 06:12 Laboratory Results - last 24 hr 06/06/18 06/07/18 06/07/18 17:15 06:12 06:12 WBC 12.0 H RBC 3.51 L Hgb 11.6 L Hct 31.8 L MCV 90.7 MCH 33.2 MCHC 36.6 H RDW 15.2 Plt Count 238 MPV 8.2 Sodium 140 Potassium 3.4 L Chloride 105 Carbon Dioxide 29.3 Anion Gap 6 BUN 23 H Creatinine 0.71 Estimated GFR Greater than 89 Random Glucose 100 Calcium 8.4 L Urine Color Yellow Urine Clarity Clear Urine pH 6.0 Ur Specific [place] Greater/equal 1.030 Urine Protein 30 H Urine Glucose (UA) Negative Urine Ketones Negative Urine Occult Blood Negative Urine Nitrate Negative Urine Bilirubin Negative Urine Urobilinogen 0.2 Ur Leukocyte Esterase Negative Urine RBC 0-3 Urine WBC 0-5 Urine Bacteria Rare H Hyaline Casts 4-10 H Micro UA Comment Cath-culture ind Urine Culture Comments Cath-cult indicated - Imaging Impressions CT Consultation 06/06/18 00:00 CONCLUSION: 1. The lesion in the anterior aspect of the left upper lobe is decreased in size. No CT biopsy was performed. Chest X-Ray 06/07/18 00:00 CONCLUSION: Increasing left lower lobe consolidation. Assessment and Plan - Assessment (1) Dyspnea Code(s): R06.00 - Dyspnea, unspecified Status: Acute (2) Weakness Code(s): R53.1 - Weakness Status: Acute (3) Lung mass Code(s): R91.8 - Other nonspecific abnormal finding of lung field Status: Acute (4) Pneumonia Code(s): J18.9 - Pneumonia, unspecified organism Status: Acute - Plan 83-year-old male with known left upper lobe lung mass admitted with pneumonia and hypoxemia. Pneumonia/hypoxemia/lung mass: -Curling Machine Operator, Dr. Quach following. -Continue antibiotics with Rocephin and azithromycin. Lung mass decreased in size and may not need to be biopsied. -Duo nebs and supplemental oxygen -Continue IV fluid for now. - Worsening consolidation on X-ray. Add vancomycin. Generalized weakness: -Secondary to above and overall declining status due to inadequate oral intake. -PT recommended SNF placement Dementia: Discussed with the patient's , he has been declining rapidly over the past couple of months. -His understand the course of the illness. She wants to take it day by day. Does not want feeding tube. Continue his chronic home medications including cardiac medications and dementia medications. Discharge Planning: Will need SNF placement. Continue IV antibiotics. Possible discharge on Saturday. (1) Dyspnea Qualifiers: Dyspnea type: shortness of breath Qualified Code(s): R06.02 - Shortness of breath; R06.00 - Dyspnea, unspecified; R06.01 - Orthopnea (4) Pneumonia Qualifiers: Pneumonia type: due to unspecified organism Laterality: left Lung location: lower lobe of lung Qualified Code(s): J18.1 - Lobar pneumonia, unspecified organism
[2018-06-07] MEDS: Vancomycin Inj 700 MG in Sodium Chlor 0.9% Inj 250 ML IV.SIG SCH ×2 (14:01→22:58)
[2018-06-07] MEDS: Divalproex 250 MG DR Tablet PO SCH (20:55)
[2018-06-07] MEDS: Lisinopril 5 MG Tablet PO SCH (20:56)
[2018-06-08] MEDS: Temazepam 15 MG Capsule PO PRN (00:59)
[2018-06-08] MEDS: Sod Chloride 0.9% Inj 1,000 ML IV.CONT SCH ×2 (06:18→17:06)
[2018-06-08 07:21] LABS: Hematocrit 33.1 % (39.0-51.0); Hemoglobin 11.6 gm/dL (13.0-17.0); Mean Corpuscular HGB Conc 35.1 % (32.0-36.0); Mean Corpuscular Hemoglobin 32.3 pg (27.0-34.0); Mean Platelet Volume 7.9 fL (7.0-11.0); Platelet Count 230 th/mm3 (150-450); Red Cell Distribution Width 15.3 % (11.6-17.2); White Blood Count 12.6 th/mm3 (4.0-11.0)
[2018-06-08 07:31] LABS: Chloride 106 meq/L (98-107); Potassium 3.8 meq/L (3.5-5.1); Sodium 141 meq/L (136-145)
[2018-06-08 07:34] LABS: Calcium 8.1 mg/dL (8.5-10.1)
[2018-06-08 07:35] LABS: Anion Gap 7 meq/L (5-15); Blood Urea Nitrogen 22 mg/dL (7-18); Carbon Dioxide 28.1 meq/L (21.0-32.0); Glucose,Random 106 mg/dL (74-106)
[2018-06-08 07:38] LABS: Glomerular Filtration Rate Greater Than 89 mL/min (>89)
[2018-06-08] MEDS: Vancomycin Inj 700 MG in Sodium Chlor 0.9% Inj 250 ML IV.SIG SCH ×2 (09:59→22:11)
[2018-06-08] MEDS: Azithromycin 250 MG Tablet PO SCH (10:00)
[2018-06-08] MEDS: MethylPREDNISolone Sod Succinate Inj 40 MG/ML Vial IV.PUSH SCH (10:00)
[2018-06-08] MEDS: Budesonide-Formoterol 160/4.5 MCG 6 GM Inhaler INH SCH ×2 (10:04→20:06)
--- NOTE | 2018-06-08 10:06 | P.PNIM ---
Subjective Interval history: Agitated overnight but calm this morning. Awake and alert. Denies shortness of breath. Physical Exam Vital signs: Vital Signs 06/07/18 12:00 06/07/18 14:35 06/07/18 16:00 Temperature 97.5 F L 96.9 F L Pulse Rate 67 66 68 Respiratory Rate 18 22 18 Blood Pressure 110/56 L 107/68 Pulse Oximetry 96 96 06/07/18 19:35 06/07/18 20:00 06/08/18 00:00 Temperature 96.2 F L 96 F L Pulse Rate 69 69 102 H Respiratory Rate 20 20 20 Blood Pressure 105/58 L 136/75 Pulse Oximetry 95 95 96 06/08/18 07:32 06/08/18 08:00 Temperature 97.4 F L Pulse Rate 63 89 Respiratory Rate 19 18 Blood Pressure 133/81 Pulse Oximetry 95 98 Intake & Output 06/07/18 06/08/18 06/08/18 18:59 06:59 18:59 Intake Total 597 / 597 2377 / 2377 Output Total 800 / 800 1200 / 1200 Balance -203 / -203 1177 / 1177 Weight 53.7 kg Intake: IV 357 / 357 2257 / 2257 NS Inj 1,000 ML @ 100 mls/hr IV 1999 / 1999 .CONT .Q10H KARYNA Rx#:[id number] Vancomycin Inj 700 MG In NS Inj 257 / 257 257 / 257 250 ML @ 257 mls/hr IV.SIG Q12H KARYNA Rx#:[id number] Rocephin Inj 1,000 MG In NS Inj 100 / 100 100 ML @ 200 mls/hr IV.SIG Q24H KARYNA Rx#:[id number] Oral 240 / 240 120 / 120 Output: Urine 800 / 800 1200 / 1200 Stool 0 / 0 Narrative: GENERAL: This is a well-nourished, well-developed patient, in no apparent distress. CARDIOVASCULAR: Normal rate and regular rhythm without murmurs, gallops, or rubs. RESPIRATORY: unlabored respirations. Markedly diminished breath sounds bilaterally at the bases. Scattered left basilar rhonchi. GASTROINTESTINAL: Abdomen soft, non-tender, non-distended. Normal active bowel sounds MUSCULOSKELETAL: Extremities without cyanosis, or edema. NEURO: Alert & Oriented to self only. Moves all extremities 4 but significant generalized weakness PSYCH: Calm today. - Urinary Catheter Management Indwelling Urethral Catheter Cath placed during this visit: yes Reason for continuing: Chronic Urinary Retention Insertion date: 06/06/18 Insertion time: 16:10 Results - Labs CBC & Chem 7: 06/08/18 06:00 06/08/18 06:00 Laboratory Results - last 24 hr 06/08/18 06/08/18 06:00 06:00 WBC 12.6 H RBC 3.60 L Hgb 11.6 L Hct 33.1 L MCV 92.0 MCH 32.3 MCHC 35.1 RDW 15.3 Plt Count 230 MPV 7.9 Sodium 141 Potassium 3.8 Chloride 106 Carbon Dioxide 28.1 Anion Gap 7 BUN 22 H Creatinine 0.69 Estimated GFR Greater than 89 Random Glucose 106 Calcium 8.1 L Microbiology 06/06/18 17:15 Catheterized Urine Urine Culture - Preliminary No growth in 24 hours Assessment and Plan - Assessment (1) Dyspnea Code(s): R06.00 - Dyspnea, unspecified Status: Acute (2) Weakness Code(s): R53.1 - Weakness Status: Acute (3) Lung mass Code(s): R91.8 - Other nonspecific abnormal finding of lung field Status: Acute (4) Pneumonia Code(s): J18.9 - Pneumonia, unspecified organism Status: Acute - Plan 83-year-old male with known left upper lobe lung mass admitted with pneumonia and hypoxemia. Pneumonia/hypoxemia/lung mass: -Briquette Maker, Dr. Quach following. -Continue antibiotics with Rocephin and azithromycin. vancomycin. Lung mass decreased in size and may not need to be biopsied. -Duo nebs and supplemental oxygen -Continue IV fluid for now. -Repeat chest x-ray in a.m. -Change steroids to oral prednisone. Generalized weakness: -Secondary to above and overall declining status due to inadequate oral intake. -PT recommended SNF placement Dementia: Discussed with the patient's , he has been declining rapidly over the past couple of months. -His understand the course of the illness. She wants to take it day by day. Does not want feeding tube. - Some behavioral disturbances, especially at night. Add Seroquel 25 mg at night . Continue his chronic home medications including cardiac medications and dementia medications. Discharge Planning: Will need SNF placement. Continue IV antibiotics. Possible discharge on Saturday. (1) Dyspnea Qualifiers: Dyspnea type: shortness of breath Qualified Code(s): R06.02 - Shortness of breath; R06.00 - Dyspnea, unspecified; R06.01 - Orthopnea (4) Pneumonia Qualifiers: Pneumonia type: due to unspecified organism Laterality: left Lung location: lower lobe of lung Qualified Code(s): J18.1 - Lobar pneumonia, unspecified organism
--- NOTE | 2018-06-08 15:42 | P.PN ---
Subjective Interval history: Confused and was agitated last PM. CXR was worse with a LLL infiltrate. Cough with no sputum. Physical Exam Vital signs: Vital Signs 06/07/18 16:00 06/07/18 19:35 06/07/18 20:00 Temperature 96.9 F L 96.2 F L Pulse Rate 68 69 69 Respiratory Rate 18 20 20 Blood Pressure 107/68 105/58 L Pulse Oximetry 96 95 95 06/08/18 00:00 06/08/18 07:32 06/08/18 08:00 Temperature 96 F L 97.4 F L Pulse Rate 102 H 63 89 Respiratory Rate 20 19 18 Blood Pressure 136/75 133/81 Pulse Oximetry 96 95 98 06/08/18 12:00 Temperature 96.0 F L Pulse Rate 78 Respiratory Rate 18 Blood Pressure 110/65 Pulse Oximetry 97 Intake & Output 06/07/18 06/08/18 06/08/18 18:59 06:59 18:59 Intake Total 597 / 597 2377 / 2377 Output Total 800 / 800 1200 / 1200 Balance -203 / -203 1177 / 1177 Weight 53.7 kg Intake: IV 357 / 357 2257 / 2257 NS Inj 1,000 ML @ 100 mls/hr IV 1999 / 1999 .CONT .Q10H KARYNA Rx#:[id number] Vancomycin Inj 700 MG In NS Inj 257 / 257 257 / 257 250 ML @ 257 mls/hr IV.SIG Q12H KARYNA Rx#:[id number] Rocephin Inj 1,000 MG In NS Inj 100 / 100 100 ML @ 200 mls/hr IV.SIG Q24H KARYNA Rx#:[id number] Oral 240 / 240 120 / 120 Output: Urine 800 / 800 1200 / 1200 Stool 0 / 0 Narrative: GENERAL: This is a emaciated , elderly confused patient, in no apparent distress. CARDIOVASCULAR: Normal rate and regular rhythm without murmurs, gallops, or rubs. RESPIRATORY: Markedly diminished breath sounds bilaterally at the bases. Scattered left rhonchiand Crackles GASTROINTESTINAL: Abdomen soft, non-tender, non-distended. Normal active bowel sounds MUSCULOSKELETAL: Extremities without cyanosis, or edema.Marked muscle wasting. NEURO: Alert & Oriented to self only. Moves all extremities 4 but significant generalized weakness PSYCH: Calm today. - Urinary Catheter Management Indwelling Urethral Catheter Cath placed during this visit: yes Reason for continuing: Chronic Urinary Retention Insertion date: 06/06/18 Insertion time: 16:10 Results - Labs CBC & Chem 7: 06/08/18 06:00 06/08/18 06:00 Laboratory Results - last 24 hr 06/08/18 06/08/18 06:00 06:00 WBC 12.6 H RBC 3.60 L Hgb 11.6 L Hct 33.1 L MCV 92.0 MCH 32.3 MCHC 35.1 RDW 15.3 Plt Count 230 MPV 7.9 Sodium 141 Potassium 3.8 Chloride 106 Carbon Dioxide 28.1 Anion Gap 7 BUN 22 H Creatinine 0.69 Estimated GFR Greater than 89 Random Glucose 106 Calcium 8.1 L Microbiology 06/06/18 17:15 Catheterized Urine Urine Culture - Final No growth in 48 hours Assessment and Plan - Assessment (1) COPD (chronic obstructive pulmonary disease) with chronic bronchitis Code(s): J44.9 - Chronic obstructive pulmonary disease, unspecified Status: Acute (2) Dyspnea Code(s): R06.00 - Dyspnea, unspecified Status: Acute (3) Weakness Code(s): R53.1 - Weakness Status: Acute (4) Lung mass Code(s): R91.8 - Other nonspecific abnormal finding of lung field Status: Acute (5) Pneumonia Code(s): J18.9 - Pneumonia, unspecified organism Status: Acute - Plan 1. Rocephin 1 G IV and Zithromax 500 mg daily 2. O2 2 L N/c 3. Duoneb nebs qid. 4. CXR ,CBC,BMP in am 5. Add Megace 400 mg daily 6. Symbicort 160/4.5 mcg , 2 puffs BID 7. Will consider Bronchoscopy if infiltrate does not clear. (2) Dyspnea Qualifiers: Dyspnea type: shortness of breath Qualified Code(s): R06.02 - Shortness of breath; R06.00 - Dyspnea, unspecified; R06.01 - Orthopnea (5) Pneumonia Qualifiers: Pneumonia type: due to unspecified organism Laterality: left Lung location: lower lobe of lung Qualified Code(s): J18.1 - Lobar pneumonia, unspecified organism
[2018-06-08] MEDS: Divalproex 250 MG DR Tablet PO SCH (20:05)
[2018-06-08] MEDS: Lisinopril 5 MG Tablet PO SCH (20:05)
[2018-06-08] MEDS: QUEtiapine 25 MG Tablet PO SCH (20:05)
[2018-06-08] MEDS ORDERED: Pharmacy Ordered Lab Info OTHER ONE (22:45)
[2018-06-09] MEDS: Sod Chloride 0.9% Inj 1,000 ML IV.CONT SCH ×2 (03:20→12:58)
[2018-06-09 07:15] LABS: Glomerular Filtration Rate Greater Than 89 mL/min (>89)
[2018-06-09] MEDS: Azithromycin 250 MG Tablet PO SCH (08:03)
[2018-06-09] MEDS: predniSONE 20 MG Tablet PO SCH (08:04)
--- NOTE | 2018-06-09 10:47 | XR ---
EXAM DATE: 06/09/2018 10:35 AM EDT AGE/SEX: 83 years / Male INDICATIONS: Short of Breath CLINICAL DATA: This is the patient's initial encounter. Patient reports that signs and symptoms have been present for 1 day and indicates a pain score of 0/10. MEDICAL/SURGICAL HISTORY: . Chronic obstructive pulmonary disease. Hypertension. Myocardial in farction . . Aortic stent COMPARISON: HPO, CHEST 1V SINGLE AP, 06/07/2018. . FINDINGS: There is bilateral mostly basilar lung consolidation with small effusions. Previous sternotomy with a ortic stent present. No pneumothorax. CONCLUSION: Basilar lung consolidation, slightly worse on the right is June 07. Small bilateral pleural effusion s. Electronically signed by: Godfrey Ulloa MD 06/09/2018 10:46 AM EDT
[2018-06-09] MEDS: Vancomycin Inj 700 MG in Sodium Chlor 0.9% Inj 250 ML IV.SIG SCH (11:05)
[2018-06-09] MEDS: Megestrol Acetate Liq 400 MG/10 ML UDC PO SCH (11:05)
[2018-06-09] MEDS: Budesonide-Formoterol 160/4.5 MCG 6 GM Inhaler INH SCH ×2 (11:08→23:25)
--- NOTE | 2018-06-09 12:51 | P.PNIM ---
Subjective Interval history: Patient still has intermittent periods of confusion. He denies shortness of breath this morning. X-ray shows persistent bilateral basilar consolidations. Physical Exam Vital signs: Vital Signs 06/08/18 16:00 06/08/18 19:10 06/08/18 20:00 Temperature 96.0 F L 96.1 F L Pulse Rate 78 115 H 115 H Respiratory Rate 18 20 18 Blood Pressure 110/63 111/69 Pulse Oximetry 97 95 92 L 06/09/18 00:00 06/09/18 08:00 06/09/18 08:32 Temperature 97.6 F 97.9 F Pulse Rate 69 100 H 100 H Respiratory Rate 18 20 22 Blood Pressure 120/67 132/71 Pulse Oximetry 95 93 L 94 L Intake & Output 06/08/18 06/09/18 06/09/18 18:59 06:59 18:59 Intake Total 2077 / 2077 2677 / 2677 Output Total 800 / 800 1999 / 1999 Balance 1277 / 1277 677 / 677 Weight 53.7 kg Intake: IV 1357 / 1357 257 / 257 NS Inj 1,000 ML @ 100 mls/hr IV 1000 / 1000 .CONT .Q10H KARYNA Rx#:[id number] Vancomycin Inj 700 MG In NS Inj 257 / 257 257 / 257 250 ML @ 257 mls/hr IV.SIG Q12H KARYNA Rx#:[id number] Rocephin Inj 1,000 MG In NS Inj 100 / 100 100 ML @ 200 mls/hr IV.SIG Q24H KARYNA Rx#:[id number] Oral 720 / 720 2420 / 2420 Output: Urine 800 / 800 1999 Other: # Bowel Movements 1 0 Narrative: GENERAL: This is a emaciated , elderly confused patient, in no apparent distress. CARDIOVASCULAR: Normal rate and regular rhythm without murmurs, gallops, or rubs. RESPIRATORY: Markedly diminished breath sounds bilaterally at the bases. Scattered left rhonchi and Crackles GASTROINTESTINAL: Abdomen soft, non-tender, non-distended. Normal active bowel sounds MUSCULOSKELETAL: Extremities without cyanosis, or edema.Marked muscle wasting. NEURO: Alert & Oriented to self only. Moves all extremities 4 but significant generalized weakness PSYCH: Calm today. - Urinary Catheter Management Indwelling Urethral Catheter Cath placed during this visit: yes Reason for continuing: Chronic Urinary Retention Insertion date: 06/06/18 Insertion time: 16:10 Results - Labs CBC & Chem 7: 06/08/18 06:00 06/09/18 05:00 Laboratory Results - last 24 hr 06/08/18 06/09/18 21:58 05:00 Creatinine 0.72 Estimated GFR Greater than 89 Vancomycin Trough 11.5 H Microbiology 06/06/18 17:15 Catheterized Urine Urine Culture - Final No growth in 48 hours - Imaging Impressions Chest X-Ray 06/09/18 00:00 CONCLUSION: Basilar lung consolidation, slightly worse on the right is June 07. Small bilateral pleural effusions. Assessment and Plan - Assessment (1) Dyspnea Code(s): R06.00 - Dyspnea, unspecified Status: Acute (2) Weakness Code(s): R53.1 - Weakness Status: Acute (3) Lung mass Code(s): R91.8 - Other nonspecific abnormal finding of lung field Status: Acute (4) Pneumonia Code(s): J18.9 - Pneumonia, unspecified organism Status: Acute - Plan 83-year-old male with known left upper lobe lung mass admitted with pneumonia and hypoxemia. Pneumonia/hypoxemia/lung mass: -[employer] Coordinator, Dr. Quach following. -Continue antibiotics with Rocephin and azithromycin. vancomycin. Lung mass decreased in size and may not need to be biopsied. -Duo nebs and supplemental oxygen -Continue oral prednisone. -Not eating much which is affecting his recovery Generalized weakness: -Secondary to above and overall declining status due to inadequate oral intake. -PT recommended SNF placement Protein calorie malnutrition: Secondary to inadequate intake. Patient has dementia and per his , he has been declining and refusing to. His states they would not do to await a feeding tube. Dementia: Discussed with the patient's , he has been declining rapidly over the past couple of months. - His understand the course of the illness. She wants to take it day by day. Does not want feeding tube. - Some behavioral disturbances, especially at night. Continue Seroquel 25 mg at night . -Consult palliative care to discuss goals with the patient and his . Provide support. I am concerned that he may continue to decline during this hospitalization. Continue his chronic home medications including cardiac medications and dementia medications. Discharge Planning: Will need SNF placement. Continue IV antibiotics. (1) Dyspnea Qualifiers: Dyspnea type: shortness of breath Qualified Code(s): R06.02 - Shortness of breath; R06.00 - Dyspnea, unspecified; R06.01 - Orthopnea (4) Pneumonia Qualifiers: Pneumonia type: due to unspecified organism Laterality: left Lung location: lower lobe of lung Qualified Code(s): J18.1 - Lobar pneumonia, unspecified organism
[2018-06-09] MEDS: Vancomycin Inj 750 MG in Sodium Chlor 0.9% Inj 250 ML IV.SIG SCH (12:58)
[2018-06-09 15:17] VITALS: RESP 20
--- NOTE | 2018-06-09 18:06 | P.PN ---
Subjective Interval history: He is feeling better. Confused still Chest Xray showed basal infiltrates. Physical Exam Vital signs: Vital Signs 06/08/18 19:10 06/08/18 20:00 06/09/18 00:00 Temperature 96.1 F L 97.6 F Pulse Rate 115 H 115 H 69 Respiratory Rate 20 18 18 Blood Pressure 111/69 120/67 Pulse Oximetry 95 92 L 95 06/09/18 08:00 06/09/18 08:32 06/09/18 12:00 Temperature 97.9 F 97.8 F Pulse Rate 100 H 100 H 101 H Respiratory Rate 20 22 20 Blood Pressure 132/71 120/69 Pulse Oximetry 93 L 94 L 98 06/09/18 13:42 Temperature Pulse Rate 60 Respiratory Rate 20 Blood Pressure Pulse Oximetry Intake & Output 06/08/18 06/09/18 06/09/18 18:59 06:59 18:59 Intake Total 2077 / 2077 2677 / 2677 1000 / 1000 Output Total 800 / 800 1999 / 1999 Balance 1277 / 1277 677 / 677 1000 / 1000 Weight 53.7 kg Intake: IV 1357 / 1357 257 / 257 1000 / 1000 NS Inj 1,000 ML @ 100 mls/hr IV 1000 / 1000 1000 / 1000 .CONT .Q10H KARYNA Rx#:[id number] Vancomycin Inj 700 MG In NS Inj 257 / 257 257 / 257 250 ML @ 257 mls/hr IV.SIG Q12H KARYNA Rx#:[id number] Rocephin Inj 1,000 MG In NS Inj 100 / 100 100 ML @ 200 mls/hr IV.SIG Q24H KARYNA Rx#:[id number] Oral 720 / 720 2420 / 2420 Output: Urine 800 / 800 1999 / 1999 Other: # Bowel Movements 1 0 Narrative: GENERAL: This is a emaciated , elderly confused patient, in no apparent distress. CARDIOVASCULAR: Normal rate and regular rhythm without murmurs, gallops, or rubs. RESPIRATORY: Markedly diminished breath sounds bilaterally at the bases. Scattered Crackles left base GASTROINTESTINAL: Abdomen soft, non-tender, non-distended. Normal active bowel sounds MUSCULOSKELETAL: Extremities without cyanosis, or edema.Marked muscle wasting. NEURO: Alert & Oriented to self only. Moves all extremities 4 but significant generalized weakness PSYCH: awake and Flat affect. - Urinary Catheter Management Indwelling Urethral Catheter Cath placed during this visit: yes Reason for continuing: Chronic Urinary Retention Insertion date: 06/06/18 Insertion time: 16:10 Results - Labs CBC & Chem 7: 06/08/18 06:00 06/09/18 05:00 Laboratory Results - last 24 hr 06/08/18 06/09/18 21:58 05:00 Creatinine 0.72 Estimated GFR Greater than 89 Vancomycin Trough 11.5 H - Imaging Impressions Chest X-Ray 06/09/18 00:00 CONCLUSION: Basilar lung consolidation, slightly worse on the right is June 07. Small bilateral pleural effusions. Assessment and Plan - Assessment (1) COPD (chronic obstructive pulmonary disease) with chronic bronchitis Code(s): J44.9 - Chronic obstructive pulmonary disease, unspecified Status: Acute (2) Dyspnea Code(s): R06.00 - Dyspnea, unspecified Status: Acute (3) Weakness Code(s): R53.1 - Weakness Status: Acute (4) Lung mass Code(s): R91.8 - Other nonspecific abnormal finding of lung field Status: Acute (5) Pneumonia Code(s): J18.9 - Pneumonia, unspecified organism Status: Acute - Plan 1. Rocephin 1 G IV and Zithromax 500 mg daily 2. O2 2 L N/c 3. Duoneb nebs qid. 4. CBC,BMP in am 5. Add PO Megace 400 mg daily 6. Symbicort 160/4.5 mcg , 2 puffs BID 7. Will consider Bronchoscopy if infiltrate does not clear. 8. Diet supplements and calorie count 9. Blood culture (2) Dyspnea Qualifiers: Dyspnea type: shortness of breath Qualified Code(s): R06.02 - Shortness of breath; R06.00 - Dyspnea, unspecified; R06.01 - Orthopnea (5) Pneumonia Qualifiers: Pneumonia type: due to unspecified organism Laterality: left Lung location: lower lobe of lung Qualified Code(s): J18.1 - Lobar pneumonia, unspecified organism
[2018-06-09] MEDS: Lisinopril 5 MG Tablet PO SCH (21:25)
[2018-06-09] MEDS: QUEtiapine 25 MG Tablet PO SCH (21:25)
[2018-06-09] MEDS: Divalproex 250 MG DR Tablet PO SCH (21:25)
[2018-06-10] MEDS: Vancomycin Inj 750 MG in Sodium Chlor 0.9% Inj 250 ML IV.SIG SCH ×2 (01:24→10:05)
[2018-06-10] MEDS ORDERED: clonazePAM 0.5 MG Tablet PO ONE (01:30)
[2018-06-10 06:04] LABS: Hematocrit 37.7 % (39.0-51.0); Hemoglobin 12.8 gm/dL (13.0-17.0); Mean Corpuscular HGB Conc 34.1 % (32.0-36.0); Mean Corpuscular Hemoglobin 31.8 pg (27.0-34.0); Mean Corpuscular Volume 93.2 fL (80.0-100.0); Mean Platelet Volume 7.1 fL (7.0-11.0); Platelet Count 238 th/mm3 (150-450); Red Blood Count 4.04 mil/mm3 (4.50-5.90); Red Cell Distribution Width 14.7 % (11.6-17.2); White Blood Count 10.4 th/mm3 (4.0-11.0)
[2018-06-10 06:17] LABS: Chloride 104 meq/L (98-107); Potassium 3.2 meq/L (3.5-5.1); Sodium 142 meq/L (136-145)
[2018-06-10 06:21] LABS: Anion Gap 9 meq/L (5-15); Calcium 8.7 mg/dL (8.5-10.1); Carbon Dioxide 28.8 meq/L (21.0-32.0); Glucose,Random 64 mg/dL (74-106)
[2018-06-10 06:22] LABS: Blood Urea Nitrogen 14 mg/dL (7-18)
[2018-06-10 06:25] LABS: Glomerular Filtration Rate Greater Than 89 mL/min (>89)
[2018-06-10] MEDS: Azithromycin 250 MG Tablet PO SCH (09:30)
[2018-06-10] MEDS: predniSONE 20 MG Tablet PO SCH (09:31)
[2018-06-10] MEDS: Budesonide-Formoterol 160/4.5 MCG 6 GM Inhaler INH SCH (09:34)
[2018-06-10] MEDS: Megestrol Acetate Liq 400 MG/10 ML UDC PO SCH (10:05)
--- NOTE | 2018-06-10 10:40 | P.DS ---
Date of admission: 06/05/18 18:06 Primary care physician: Melo Cardona Brief History from admission: The patient is a poor historian. He is not able to articulate his medical history. I discussed the case with his medicine tech Dr. Quach. Apparently he has been doing fairly well until a few weeks ago when he started to decline with worsening shortness of breath with minimal activity. He has been losing weight. He was sent from Dr. Quach's office for weakness and hypoxia. Workup in the emergency room revealed a left lower lobe pneumonia. The patient also has a known left lung mass which needs further workup. The patient is somewhat somnolent but he knows he was sent to the hospital for shortness of breath. Update on the day of discharge 06/10/18: Patient reports he is feeling okay. Discussed with his and RN. He is eating better today. Long discussion with his regarding goals of care and long-term planning. DS: Diagnosis - Discharge Diagnosis (1) Dyspnea Status: Acute (2) Weakness Status: Acute (3) Lung mass Status: Acute (4) Pneumonia Status: Acute DS: Summary Hospital Course: 83-year-old male with dementia, known left upper lobe lung mass admitted with pneumonia and hypoxemia. Evaluation and treatment course detailed below: Pneumonia/hypoxemia/lung mass: -Accounting Administrative Assistant, Dr. Quach follow the patient. I discussed the case with him. The patient can be discharged to SNF to continue on oral antibiotics. Continue prednisone for an additional 5 days -Repeat imaging showed lung mass decreased therefore this was not biopsied. -Duo nebs and supplemental oxygen -Not eating much which is affecting his recovery Generalized weakness: -Secondary to above and overall declining status due to inadequate oral intake. -Patient discharged to SNF for continued rehabilitation efforts. Protein calorie malnutrition: Moderate, secondary to inadequate intake. Patient has dementia and per his , he has been declining and refusing to. His states they would not do to await a feeding tube. -He was started on Megace with some improvement. We will continue Megace on discharge. Dementia: Discussed with the patient's , he has been declining rapidly over the past couple of months. - His understand the course of the illness. Does not want feeding tube. -Seroquel was added at night to help with behavioral symptoms. Continue Seroquel 25 mg at night . -Patient's understand and although he survived this hospitalization, he is likely to decline in the future. His states she will contact the [facility] hospice outpatient. Continue his chronic home medications including cardiac medications and dementia medications. - Time Spent with Patient Total time spent providing and/or coordinating discharge services: Greater than 30 minutes Exam Vital signs: Vital Signs 06/09/18 12:00 06/09/18 13:42 06/09/18 16:50 Temperature 97.8 F 97.7 F Pulse Rate 101 H 60 63 Respiratory Rate 20 20 20 Blood Pressure 120/69 118/81 Pulse Oximetry 98 93 L 06/09/18 20:00 06/09/18 20:06 06/10/18 00:00 Temperature 97.1 F L 97.4 F L Pulse Rate 107 H 63 77 Respiratory Rate 18 16 18 Blood Pressure 158/86 H 144/64 H Pulse Oximetry 94 L 93 L 97 06/10/18 07:29 Temperature 97.3 F L Pulse Rate 65 Respiratory Rate 20 Blood Pressure 126/76 Pulse Oximetry 95 Intake & Output 06/09/18 06/10/18 06/10/18 18:59 06:59 18:59 Intake Total 1917.5 / 1917.5 1094.5 / 1094.5 1257 / 1257 Output Total 2700 / 2700 2400 / 2400 Balance -782.5 / -782.5 -1305.5 / -1305.5 1257 / 1257 Weight 53.7 kg Intake: IV 1257.5 / 1257.5 614.5 / 614.5 1257 / 1257 NS Inj 1,000 ML @ 100 mls/hr IV 1000 / 1000 1000 / 1000 .CONT .Q10H KARYNA Rx#:[id number] Vancomycin Inj 700 MG In NS Inj 257.5 / 257.5 514.5 / 514.5 257 / 257 250 ML @ 257 mls/hr IV.SIG Q12H KARYNA Rx#:[id number] Rocephin Inj 1,000 MG In NS Inj 100 / 100 100 ML @ 200 mls/hr IV.SIG Q24H KARYNA Rx#:[id number] Oral 660 / 660 480 / 480 Output: Urine 2700 / 2700 2400 / 2400 Other: # Bowel Movements 0 Narrative: GENERAL: Cachectic, elderly male in no acute distress. CARDIOVASCULAR: Normal rate and regular rhythm without murmurs, gallops, or rubs. RESPIRATORY: Diminished breath sounds at the bases bilaterally, otherwise clear to auscultation. GASTROINTESTINAL: Abdomen soft, non-tender, non-distended. Normal active bowel sounds MUSCULOSKELETAL: Extremities without cyanosis, or edema. NEURO: Alert & Oriented to self and place but not situation. Moves all ext x4 PSYCH: Calm Results Procedures completed during hospitalization: None Labs on day of discharge: Labs from last 24 hours 06/10/18 06/10/18 05:27 05:27 WBC 10.4 RBC 4.04 L Hgb 12.8 L Hct 37.7 L MCV 93.2 MCH 31.8 MCHC 34.1 RDW 14.7 Plt Count 238 MPV 7.1 Sodium 142 Potassium 3.2 L Chloride 104 Carbon Dioxide 28.8 Anion Gap 9 BUN 14 Creatinine 0.74 Estimated GFR Greater than 89 Random Glucose 64 L Calcium 8.7 - Impressions ITS Impressions CT Consultation 06/06/18 00:00 CONCLUSION: 1. The lesion in the anterior aspect of the left upper lobe is decreased in size. No CT biopsy was performed. Chest X-Ray 06/09/18 00:00 CONCLUSION: Basilar lung consolidation, slightly worse on the right is June 4. Small bilateral pleural effusions. Discharge Plan - Discharge Disposition Patient Disposition: Discharge to SNF - Discharge Condition Condition: Stable - Discharge Order Discharge Orders: Discharge Order (Routine); Ordered 06/10/18 Ordered By: Shima Zamora - Physicians Team Primary Care Provider: Melo Cardona Attending Provider: Shima Zamora Other Providers: Andrew Quach MD ; Fernanda,Yenifera
--- NOTE | 2018-06-10 12:38 | P.PNPAL ---
Discussed patient with Dr. Zamora; Dr. Zamora had a lengthy conversation with patient/family about prognosis and medical treatment goals. Patient's wishes to contact [facility] outpatient. Palliative care consult has been cancelled at this time; please let the Palliative care team know if we can be of further assistance in the future.
[2018-06-10 17:58] VITALS: PULSE 68; O2SAT 95
--- NOTE | 2018-06-10 17:58 | P.PN ---
Subjective Interval history: Better now and taking his diet. Will go to Rehab .On O2 2 L Physical Exam Vital signs: Vital Signs 06/09/18 20:00 06/09/18 20:06 06/10/18 00:00 Temperature 97.1 F L 97.4 F L Pulse Rate 107 H 63 77 Respiratory Rate 18 16 18 Blood Pressure 158/86 H 144/64 H Pulse Oximetry 94 L 93 L 97 06/10/18 07:29 06/10/18 11:09 Temperature 97.3 F L 97.6 F Pulse Rate 65 68 Respiratory Rate 20 20 Blood Pressure 126/76 132/74 Pulse Oximetry 95 95 Intake & Output 06/09/18 06/10/18 06/10/18 18:59 06:59 18:59 Intake Total 1917.5 / 1917.5 1094.5 / 1094.5 1514.5 / 1514.5 Output Total 2700 / 2700 2400 / 2400 Balance -782.5 / -782.5 -1305.5 / -1305.5 1514.5 / 1514.5 Weight 53.7 kg Intake: IV 1257.5 / 1257.5 614.5 / 614.5 1514.5 / 1514.5 NS Inj 1,000 ML @ 100 mls/hr IV 1000 / 1000 1000 / 1000 .CONT .Q10H KARYNA Rx#:[id number] Vancomycin Inj 750 MG In NS Inj 257.5 / 257.5 514.5 / 514.5 514.5 / 514.5 250 ML @ 257 mls/hr IV.SIG Q12H KARYNA Rx#:[id number] Rocephin Inj 1,000 MG In NS Inj 100 / 100 100 ML @ 200 mls/hr IV.SIG Q24H KARYNA Rx#:[id number] Oral 660 / 660 480 / 480 Output: Urine 2700 / 2700 2400 / 2400 Other: # Bowel Movements 0 Narrative: GENERAL: This is a emaciated , elderly patient, in no apparent distress. CARDIOVASCULAR: Normal rate and regular rhythm without murmurs, gallops, or rubs. RESPIRATORY: Markedly diminished breath sounds bilaterally . Scattered Crackles left base GASTROINTESTINAL: Abdomen soft, non-tender, non-distended. Normal active bowel sounds MUSCULOSKELETAL: Extremities without cyanosis, or edema.Marked muscle wasting. NEURO: Alert & Oriented to self only. Moves all extremities 4 but significant generalized weakness - Urinary Catheter Management Indwelling Urethral Catheter Cath placed during this visit: yes, but has since been removed by the nurse Reason for continuing: Decision to DC catheter Insertion date: 06/06/18 Insertion time: 16:10 Removal date: 06/10/18 Removal time: 06:46 Results - Labs CBC & Chem 7: 06/10/18 05:27 06/10/18 05:27 Laboratory Results - last 24 hr 06/10/18 06/10/18 05:27 05:27 WBC 10.4 RBC 4.04 L Hgb 12.8 L Hct 37.7 L MCV 93.2 MCH 31.8 MCHC 34.1 RDW 14.7 Plt Count 238 MPV 7.1 Sodium 142 Potassium 3.2 L Chloride 104 Carbon Dioxide 28.8 Anion Gap 9 BUN 14 Creatinine 0.74 Estimated GFR Greater than 89 Random Glucose 64 L Calcium 8.7 Microbiology 06/09/18 18:20 Blood - Peripheral Aerobic Blood Culture - Preliminary No growth in 1 day 06/09/18 18:20 Blood - Peripheral Anaerobic Blood Culture - Preliminary No growth in 1 day 06/09/18 18:25 Blood - Peripheral Aerobic Blood Culture - Preliminary No growth in 1 day 06/09/18 18:25 Blood - Peripheral Anaerobic Blood Culture - Preliminary No growth in 1 day - Procedures None Assessment and Plan - Assessment (1) COPD (chronic obstructive pulmonary disease) with chronic bronchitis Code(s): J44.9 - Chronic obstructive pulmonary disease, unspecified Status: Acute (2) Dyspnea Code(s): R06.00 - Dyspnea, unspecified Status: Acute (3) Weakness Code(s): R53.1 - Weakness Status: Acute (4) Lung mass Code(s): R91.8 - Other nonspecific abnormal finding of lung field Status: Acute (5) Pneumonia Code(s): J18.9 - Pneumonia, unspecified organism Status: Acute - Plan 1. D/C Rocephin and add Ceftin 500 mg BID X 7 days 2. O2 2 L N/c 3. Duoneb nebs qid. 4. To prison 5. Add PO Megace 400 mg daily 6. Symbicort 160/4.5 mcg , 2 puffs BID 7. Will consider Bronchoscopy if infiltrate does not clear. 8. Diet supplements and calorie count 9. Get F/U CT chest in 6 weeks (2) Dyspnea Qualifiers: Dyspnea type: shortness of breath Qualified Code(s): R06.02 - Shortness of breath; R06.00 - Dyspnea, unspecified; R06.01 - Orthopnea (5) Pneumonia Qualifiers: Pneumonia type: due to unspecified organism Laterality: left Lung location: lower lobe of lung Qualified Code(s): J18.1 - Lobar pneumonia, unspecified organism
[2018-06-10 18:04] VITALS: BP 132/74; TEMP 97.6
[2018-06-10] MEDS ORDERED: [UNRECOGNIZED DRUG - REMARK] OTHER ONE (22:45)
== END 2018-06-10 14:03 ==
LOC: PHED 16:11 → PHEDA 18:06 → PH3 20:40
PROVIDERS: ADMIT Family Medicine; ATTEND Family Medicine